=== PATIENT | female | born 1990 | race American Indian/Alaskan Native ===

== ENCOUNTER 2016-08-24 22:06 | Emergency (ER) | payer MEDICAID, OTHER ==
[2016-08-24 22:12] VITALS: BP 146/92
--- NOTE | 2016-08-24 22:50 | EDM.PDOC ---
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 History: Reports: , Spontaneous Other OB/BYN History: menarche - Infectious Disease History Infectious Disease History: Reports: Hepatitis C - Past Surgical History Female Surgical History: Reports: Section Social & Family History - Family History Family Medical History: Noncontributory - Tobacco Use Smoking Status *Q: Current Every Day Smoker Years of Tobacco use: 15 Packs/Tins Daily: 0.2 Used Tobacco, but Quit: No Second Hand Smoke Exposure: Yes - Alcohol Use Days Per Week of Alcohol Use: 0 - Recreational Drug Use Recreational Drug Use: No Review of Systems - Review of Systems Review Of Systems: ROS reveals no pertinent complaints other than HPI. Trauma Exam - Physical Exam Exam: See Below Exam Limited By: No Limitations General Appearance: Reports: Alert, WD/WN, Mild Distress, Other (ankle pain) Head: Reports: Atraumatic Ears: Reports: Hearing Grossly Normal Throat/Mouth: Reports: Normal Voice, No Airway Compromise Neck: Reports: Non-Tender, Full Range of Motion Respiratory Exam: Reports: No Respiratory Distress Cardiovascular: Reports: Regular Rate, Rhythm GI/Abdominal: Reports: Soft, Non-Tender Extremities: Pain with Movement, Tenderness, Unable to Bear Weight, Other (left ankle swollen tender R/P, NV wnl, gait unable) Neurologic: Reports: No Motor/Sensory Deficits, Alert, Normal Mood/Affect, Oriented x 3 Skin: Reports: Normal Color, Warm/Dry Course - Vital Signs Last Recorded V/S: Last Vital Signs Temp 36.3 C 08/24/16 22:08 Pulse 62 08/24/16 22:08 Resp 18 08/24/16 22:08 BP 146/92 H 08/24/16 22:08 Pulse Ox 99 08/24/16 22:08 - Re-Assessments/Exams Free Text/Narrative Re-Assessment/Exam: 08/24/16 23:38 negative x-ray discussed with Pt. Departure - Departure Time of Disposition: 23:39 Disposition: Home, Self-Care 01 Condition: good Clinical Impression: High ankle sprain of left lower extremity Qualifiers: Encounter type: initial encounter Qualified Code(s): S93.432A - Sprain of tibiofibular ligament of left ankle, initial encounter - Discharge Information Instructions: Ankle Sprain, [id number] Forms: ED Department Discharge Additional Instructions: 1) elevate leg as much as possible next 48 hours 2) ice intermittently for swelling 3) wear WINDY for comfort and use crutches 4) follow up at clinic or recheck as needed }
== END 2016-08-24 23:46 | disposition home or self-care (01) ==
LOC: DL.ED 22:06
DX: S93.432A Sprain of tibiofibular ligament of left ankle, initial encounter (principal); F17.210 Nicotine dependence, cigarettes, uncomplicated; X50.1XXA Overexertion from prolonged static or awkward postures, initial encounter
CPT/HCPCS: 73600-LT; 99283

== ENCOUNTER 2016-08-26 04:53 | Inpatient (IN) | payer MEDICAID, SELFPAY ==
[~2016-08-26 04:53] MED LIST: Citric Acid/Sodium Citrate Solution 30 ML Cup PO ONE; Ondansetron 4 MG/2 ML SDV IVPUSH PRN; Sodium Chloride 0.9% 10 ML Syringe FLUSH PRN; ceFAZolin 2 GM in Premix Bag 1 BAG IV ONE
[2016-08-26] MEDS ORDERED: Oxytocin/Normal Saline 30 UNIT/500 ML BAG IV SCH (05:00)
[2016-08-26] MEDS: Lactated Ringers 1,000 ML IV SCH ×3 (06:40→10:58)
[2016-08-26] MEDS ORDERED: Morphine PF 5 MG/10 ML SDV ONE ×2 (07:22→16:06)
[2016-08-26] MEDS ORDERED: Phenylephrine 1% 10 MG/ML SDV ONE ×3 (07:22→07:24)
[2016-08-26] MEDS ORDERED: fentaNYL 100 MCG/2 ML SDV ONE ×2 (07:22→16:06)
[2016-08-26] MEDS ORDERED: ePHEDrine 50 MG/ML SDV ONE (07:22)
[2016-08-26] MEDS ORDERED: Glycopyrrolate 0.2 MG/ML 2 ML SDV ONE (07:23)
[2016-08-26] MEDS ORDERED: Ketorolac 30 MG/ML SDV IVPUSH ONE ×2 (08:30→16:06)
[2016-08-26] MEDS ORDERED: Acetaminophen 325 MG Tab PO PRN (12:54)
[2016-08-26] MEDS ORDERED: Acetaminophen/oxyCODONE 325-5 MG Tab PO PRN (12:54)
[2016-08-26] MEDS ORDERED: Ondansetron 4 MG/2 ML SDV IV PRN (12:54)
[2016-08-26] MEDS ORDERED: Ibuprofen 800 MG Tab PO PRN (12:54)
[2016-08-26] MEDS ORDERED: Misoprostol 400 MCG (4 X 100 MCG TAB) RECTAL PRN (12:54)
[2016-08-26] MEDS ORDERED: ePHEDrine 50 MG/ML SDV IVPUSH PRN (12:54)
[2016-08-26] MEDS ORDERED: Methylergonovine 0.2 MG/1 ML Amp IM PRN (12:54)
[2016-08-26] MEDS ORDERED: Naloxone 2 MG/2 ML Syringe IVPUSH PRN (12:54)
[2016-08-26] MEDS ORDERED: Lactated Ringers 1,000 ML IV SCH (13:00)
[2016-08-26] MEDS ORDERED: Ondansetron 4 MG/2 ML SDV IV ONE (16:06)
[2016-08-26] MEDS ORDERED: ePHEDrine 50 MG/ML SDV IV ONE (16:06)
[2016-08-26] MEDS ORDERED: Glycopyrrolate 0.2 MG/ML 2 ML SDV IV ONE (16:06)
[2016-08-26] MEDS ORDERED: Oxytocin/Normal Saline 30 UNIT/500 ML BAG IV ONE (16:08)
[2016-08-26] MEDS ORDERED: ceFAZolin 2 GM in Premix Bag 1 BAG IV ONE (16:08)
[2016-08-26] MEDS: Loratadine 10 MG Tab PO SCH (17:34)
[2016-08-26] MEDS: Ketorolac 30 MG/ML SDV IVPUSH SCH ×2 (17:35→23:31)
[2016-08-26] MEDS: Famotidine 20 MG/2 ML SDV IVPUSH PRN (17:37)
[2016-08-26] MEDS: Ferrous Sulfate 325 MG Tab PO SCH (17:54)
[2016-08-26] MEDS: Simethicone 80 MG Tab.Chew PO PRN (19:28)
[2016-08-26] MEDS: Docusate Sodium 100 MG Cap PO PRN (19:28)
[2016-08-26] MEDS: diphenhydrAMINE 50 MG/ML SDV IVPUSH PRN (19:28)
[2016-08-26] MEDS ORDERED: Hydrocortisone 1% Crm 30 GM Tube TOP PRN (20:38)
[2016-08-26] MEDS: Acetaminophen/oxyCODONE 325-5 MG Tab PO PRN (23:30)
[2016-08-27] MEDS: diphenhydrAMINE 50 MG/ML SDV IVPUSH PRN ×2 (00:53→13:09)
[2016-08-27] MEDS: Acetaminophen/oxyCODONE 325-5 MG Tab PO PRN ×5 (03:23→21:39)
[2016-08-27] MEDS: Ketorolac 30 MG/ML SDV IVPUSH SCH (05:47)
[2016-08-27] MEDS: Famotidine 20 MG/2 ML SDV IVPUSH PRN (06:05)
--- NOTE | 2016-08-27 07:48 | PCM.PN ---
[id number] Status: Reports: pain controlled, tolerating diet - Review of Systems General: Reports: No Symptoms HEENT: Reports: no symptoms Pulmonary: Denies: shortness of breath, cough, wheezing Cardiovascular: Denies: Chest Pain Gastrointestinal: Reports: Flatus. Denies: Nausea, Vomiting Genitourinary: Reports: no symptoms Musculoskeletal: Reports: no symptoms Skin: Reports: pruritis Neurological: Reports: No Symptoms Psychiatric: Reports: no symptoms - Patient Data Vitals - most recent: Last Vital Signs Temp 97.7 F 08/27/16 07:34 Pulse 62 08/27/16 07:34 Resp 16 08/27/16 07:34 BP 121/77 08/27/16 07:34 Pulse Ox 99 08/27/16 07:34 Weight - most recent: 69.853 kg I&O - last 24 hours: Intake & Output 08/26/16 08/27/16 08/27/16 22:59 06:59 14:59 Intake Total 284 800 Output Total 215 2650 Balance 69 -1850 Lab Results last 24 hrs: Laboratory Results - last 24 hr 08/26/16 08/26/16 08/27/16 Range/Units 06:29 08:22 06:06 WBC 8.1 (5.0-10.0) 10^3/uL RBC 3.89 L (4.2-5.4) 10^6/uL Hgb 11.5 L (12.0-16.0) g/dL Hct 34.9 L (37.0-47.0) % MCV 89.7 (80-100) fL MCH 29.6 (27.0-34.0) pg MCHC 33.0 (33.0-35.0) g/dL Plt Count 246 (150-450) 10^3/uL Urine Opiates Screen Negative (NEGATIVE) Ur Oxycodone Screen Positive H (NEGATIVE) Urine Methadone Screen Negative (NEGATIVE) Ur Barbiturates Screen Negative (NEGATIVE) U Tricyclic Antidepress Negative (NEGATIVE) Ur Phencyclidine Scrn Negative (NEGATIVE) Ur Amphetamine Screen Negative (NEGATIVE) U Methamphetamines Scrn Negative (NEGATIVE) Urine MDMA Screen Negative (NEGATIVE) U Benzodiazepines Scrn Negative (NEGATIVE) Urine Cocaine Screen Negative (NEGATIVE) U Marijuana (THC) Screen Negative (NEGATIVE) Blood Type O POSITIVE Gel Antibody Screen Negative Med Orders - Current: Current Medications Acetaminophen (Tylenol) 650 mg PO Q6H PRN PRN Reason: mild pain or fever Diphenhydramine HCl (Benadryl) 25 mg IVPUSH Q6H PRN PRN Reason: Itching or Nausea Last Admin: 08/27/16 00:53 Dose: 25 mg Docusate Sodium (Colace) 100 mg PO Q12H PRN PRN Reason: Constipation Last Admin: 08/26/16 19:28 Dose: 100 mg Ephedrine Sulfate (Ephedrine Sulfate) 5 mg IVPUSH SEECOMMENT PRN PRN Reason: Other Famotidine (Pepcid) 20 mg IVPUSH BID PRN PRN Reason: Itching Last Admin: 08/27/16 06:05 Dose: 20 mg Ferrous Sulfate (Ferrous Sulfate) 325 mg PO BRK JERAMY Last Admin: 08/26/16 17:54 Dose: Not Given Hydrocortisone (Hydrocortisone 1% Crm) 0 gm TOP ASDIRECTED PRN PRN Reason: Itching Last Admin: 08/26/16 21:29 Dose: 1 gm Oxytocin/Sodium Chloride (Pitocin In Ns 30 Unit/500 Ml) 30 unit in 500 mls @ 500 mls/hr IV TITRATE JERAMY; 500 MUNITS/MIN PRN Reason: Protocol Last Titration: 08/26/16 16:13 Dose: 0 munits/min, 0 mls/hr Lactated Ringer's (Ringers, Lactated) 1,000 mls @ 125 mls/hr IV ASDIRECTED JERAMY Last Admin: 08/26/16 10:58 Dose: 125 mls/hr Lactated Ringer's (Ringers, Lactated) 1,000 mls @ 125 mls/hr IV ASDIRECTED JERAMY Ibuprofen (Motrin) 800 mg PO Q8H PRN PRN Reason: mild pain or fever Loratadine (Claritin) 10 mg PO DAILY [facility] Last Admin: 08/26/16 17:34 Dose: 10 mg Methylergonovine Maleate (Methergine) 0.2 mg IM ONETIME PRN PRN Reason: Excessive Vaginal Bleeding Misoprostol (Cytotec) 800 mcg RECTAL ASDIRECTED PRN PRN Reason: Bleeding Naloxone HCl (Narcan) 0.1 mg IVPUSH SEECOMMENT PRN PRN Reason: Respiratory Depression Ondansetron HCl (Zofran) 4 mg IVPUSH Q4H PRN PRN Reason: Nausea/Vomiting Ondansetron HCl (Zofran) 4 mg IV Q4H PRN PRN Reason: Nausea/Vomiting Oxycodone/Acetaminophen (Percocet 325-5 Mg) 1 tab PO Q4H PRN PRN Reason: Pain (moderate 4-6) Oxycodone/Acetaminophen (Percocet 325-5 Mg) 2 tab PO Q4H PRN PRN Reason: Pain (moderate 4-6) Last Admin: 08/27/16 03:23 Dose: 2 tab Prenat Multivit/Breckinridge/Iron/Folic Ac ( Plus Iron) 1 each PO DAILY JERAMY Simethicone (Simethicone) 80 mg PO Q4H PRN PRN Reason: Gas Last Admin: 08/26/16 19:28 Dose: 80 mg Sodium Chloride (Saline Flush) 10 ml FLUSH ASDIRECTED PRN PRN Reason: Keep Vein Open Discontinued Medications Citric Acid/Sodium Citrate (Bicitra Solution) 30 ml PO ONETIME ONE Stop: 08/26/16 04:53 Last Admin: 08/26/16 11:16 Dose: 30 ml Ephedrine Sulfate (Ephedrine Sulfate) Confirm Administered Dose 50 mg .ROUTE .STK-MED ONE Stop: 08/26/16 07:23 Ephedrine Sulfate (Ephedrine Sulfate) 15 mg IV .STK-MED ONE Stop: 08/26/16 16:07 Fentanyl (Sublimaze) Confirm Administered Dose 100 mcg .ROUTE .STK-MED ONE Stop: 08/26/16 07:23 Fentanyl (Sublimaze) 10 mcg .XX .STK-MED ONE Stop: 08/26/16 16:07 Glycopyrrolate (Glycopyrrolate) Confirm Administered Dose 0.4 mg .ROUTE .STK- MED ONE Stop: 08/26/16 07:24 Glycopyrrolate (Glycopyrrolate) 0.2 mg IV .STK-MED ONE Stop: 08/26/16 16:07 Cefazolin Sodium/Dextrose 2 gm (/ Premix) 50 mls @ 100 mls/hr IV ONETIME ONE Stop: 08/26/16 05:21 Last Admin: 08/26/16 11:50 Dose: 100 mls/hr Cefazolin Sodium/Dextrose 2 gm (/ Premix) 50 mls @ as directed IV .STK-MED ONE Stop: 08/26/16 16:09 Oxytocin/Sodium Chloride (Pitocin In Ns 30 Unit/500 Ml) 30 unit in 500 mls @ as directed IV .STK-MED ONE Stop: 08/26/16 16:09 Ibuprofen (Motrin) 800 mg PO Q8H PRN PRN Reason: mild pain or fever Ketorolac Tromethamine (Toradol) 30 mg IVPUSH ONETIME ONE Stop: 08/26/16 08:31 Last Admin: 08/26/16 15:27 Dose: Not Given Ketorolac Tromethamine (Toradol) 15 mg IVPUSH Q6H JERAMY Stop: 08/27/16 06:01 Last Admin: 08/27/16 05:47 Dose: 15 mg Ketorolac Tromethamine (Toradol) 30 mg IVPUSH .STK-MED ONE Stop: 08/26/16 16:07 Morphine Sulfate (Duramorph Pf) Confirm Administered Dose 5 mg .ROUTE .STK-MED ONE Stop: 08/26/16 07:23 Morphine Sulfate (Duramorph Pf) 0.2 mg .XX .STK-MED ONE Stop: 08/26/16 16:07 Ondansetron HCl (Zofran) 4 mg IV .STK-MED ONE Stop: 08/26/16 16:07 Phenylephrine HCl (Jesus Alberto-Synephrine) Confirm Administered Dose 10 mg .ROUTE .STK- MED ONE Stop: 08/26/16 07:23 Phenylephrine HCl (Jesus Alberto-Synephrine) Confirm Administered Dose 10 mg .ROUTE .STK- MED ONE Stop: 08/26/16 07:24 Phenylephrine HCl (Jesus Alberto-Synephrine) Confirm Administered Dose 10 mg .ROUTE .STK- MED ONE Stop: 08/26/16 07:25 - Exam General: alert, oriented, cooperative, no acute distress Lungs: Clear to auscultation, Normal respiratory effort Cardiovascular: Regular Rate, Regular Rhythm Abdomen: bowel sounds present, soft, no distension (Female) Exam: Deferred Back Exam: Normal Inspection Extremities: no edema Skin: warm, dry, intact Wound/Incisions: healing well, no drainage Neurological: no new focal deficit Psy/Mental Status: alert, normal affect - Problem List & Annotations (1) S/P repeat low transverse SNOMED Code(s): 614150509, 948136096, 946342960, 412406773 Code(s): Z98.891 - HISTORY OF UTERINE SCAR FROM PREVIOUS SURGERY Status: Acute Current Visit: Yes (2) Intrahepatic cholestasis of SNOMED Code(s): 077148291 Code(s): O26.619 - LIVER AND BILIARY TRACT DISORD IN , UNSP TRIMESTER; K83.1 - OBSTRUCTION OF BILE DUCT Status: Acute Current Visit: Yes (3) Blood type O+ SNOMED Code(s): 136721875 Code(s): Z67.40 - TYPE O BLOOD, RH POSITIVE Status: Acute Current Visit: Yes (4) History of drug abuse SNOMED Code(s): 715813756 Code(s): Z87.898 - PERSONAL HISTORY OF OTHER SPECIFIED CONDITIONS Status: Acute Current Visit: Yes - Problem List Review Problem List Initiated/Reviewed/Updated: Yes - Assessment Assessment:: Assessment: 1. Now 1 day s/p csection at 37 weeks 2. 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 O+ rubella equivocal, GBS- 4. History of BV in first trimester - treated 5. h/o recently sprained ankle. - Plan Plan:: 1. continue, cares per unit protocol 2. Remove ferguson catheter 3. Ambulate as able 4. loratadine and hydrocortisone as ordered for itching. <Nicolette Vu - Last Filed: 08/28/16 02:25> - Patient Data Vitals - most recent: Last Vital Signs Temp 97.2 F 08/27/16 20:00 Pulse 118 H 08/27/16 20:00 Resp 16 08/27/16 20:00 BP 126/77 08/27/16 16:00 Pulse Ox 97 08/27/16 20:00 I&O - last 24 hours: Intake & Output 08/27/16 08/27/16 08/28/16 14:59 22:59 06:59 Intake Total 500 Output Total 2000 350 Balance -1500 -350 Lab Results last 24 hrs: Laboratory Results - last 24 hr 08/27/16 Range/Units 06:06 WBC 8.1 (5.0-10.0) 10^3/uL RBC 3.89 L (4.2-5.4) 10^6/uL Hgb 11.5 L (12.0-16.0) g/dL Hct 34.9 L (37.0-47.0) % MCV 89.7 (80-100) fL MCH 29.6 (27.0-34.0) pg MCHC 33.0 (33.0-35.0) g/dL Plt Count 246 (150-450) 10^3/uL Med Orders - Current: Current Medications Acetaminophen (Tylenol) 650 mg PO Q6H PRN PRN Reason: mild pain or fever Diphenhydramine HCl (Benadryl) 25 mg IVPUSH Q6H PRN PRN Reason: Itching or Nausea Last Admin: 08/27/16 13:09 Dose: 25 mg Diphenhydramine HCl (Benadryl) 25 mg PO QID PRN PRN Reason: Itching Docusate Sodium (Colace) 100 mg PO Q12H PRN PRN Reason: Constipation Last Admin: 08/27/16 21:42 Dose: 100 mg Ephedrine Sulfate (Ephedrine Sulfate) 5 mg IVPUSH SEECOMMENT PRN PRN Reason: Other Famotidine (Pepcid) 20 mg IVPUSH BID PRN PRN Reason: Itching Last Admin: 08/27/16 06:05 Dose: 20 mg Ferrous Sulfate (Ferrous Sulfate) 325 mg PO BRK JERAMY Last Admin: 08/27/16 09:18 Dose: 325 mg Hydrocortisone (Hydrocortisone 1% Crm) 0 gm TOP ASDIRECTED PRN PRN Reason: Itching Last Admin: 08/26/16 21:29 Dose: 1 gm Oxytocin/Sodium Chloride (Pitocin In Ns 30 Unit/500 Ml) 30 unit in 500 mls @ 500 mls/hr IV TITRATE JERAMY; 500 MUNITS/MIN PRN Reason: Protocol Last Titration: 08/26/16 16:13 Dose: 0 munits/min, 0 mls/hr Lactated Ringer's (Ringers, Lactated) 1,000 mls @ 125 mls/hr IV ASDIRECTED JERAMY Last Admin: 08/26/16 10:58 Dose: 125 mls/hr Lactated Ringer's (Ringers, Lactated) 1,000 mls @ 125 mls/hr IV ASDIRECTED JERAMY Ibuprofen (Motrin) 800 mg PO Q8H PRN PRN Reason: mild pain or fever Last Admin: 08/28/16 01:54 Dose: 800 mg Loratadine (Claritin) 10 mg PO DAILY [facility] Last Admin: 08/27/16 09:17 Dose: 10 mg Methylergonovine Maleate (Methergine) 0.2 mg IM ONETIME PRN PRN Reason: Excessive Vaginal Bleeding Misoprostol (Cytotec) 800 mcg RECTAL ASDIRECTED PRN PRN Reason: Bleeding Naloxone HCl (Narcan) 0.1 mg IVPUSH SEECOMMENT PRN PRN Reason: Respiratory Depression Ondansetron HCl (Zofran) 4 mg IVPUSH Q4H PRN PRN Reason: Nausea/Vomiting Ondansetron HCl (Zofran) 4 mg IV Q4H PRN PRN Reason: Nausea/Vomiting Oxycodone/Acetaminophen (Percocet 325-5 Mg) 1 tab PO Q4H PRN PRN Reason: Pain (moderate 4-6) Oxycodone/Acetaminophen (Percocet 325-5 Mg) 2 tab PO Q4H PRN PRN Reason: Pain (moderate 4-6) Last Admin: 08/28/16 01:50 Dose: 2 tab Prenat Multivit/Breckinridge/Iron/Folic Ac ( Plus Iron) 1 each PO DAILY [facility] Last Admin: 08/27/16 09:18 Dose: 1 each Simethicone (Simethicone) 80 mg PO Q4H PRN PRN Reason: Gas Last Admin: 08/27/16 21:40 Dose: 80 mg Sodium Chloride (Saline Flush) 10 ml FLUSH ASDIRECTED PRN PRN Reason: Keep Vein Open Last Admin: 08/27/16 13:10 Dose: 10 ml Zolpidem Tartrate (Ambien) 5 mg PO BEDTIME PRN PRN Reason: Sleep Last Admin: 08/27/16 21:40 Dose: 5 mg Discontinued Medications Citric Acid/Sodium Citrate (Bicitra Solution) 30 ml PO ONETIME ONE Stop: 08/26/16 04:53 Last Admin: 08/26/16 11:16 Dose: 30 ml Ephedrine Sulfate (Ephedrine Sulfate) Confirm Administered Dose 50 mg .ROUTE .STK-MED ONE Stop: 08/26/16 07:23 Ephedrine Sulfate (Ephedrine Sulfate) 15 mg IV .STK-MED ONE Stop: 08/26/16 16:07 Fentanyl (Sublimaze) Confirm Administered Dose 100 mcg .ROUTE .STK-MED ONE Stop: 08/26/16 07:23 Fentanyl (Sublimaze) 10 mcg .XX .STK-MED ONE Stop: 08/26/16 16:07 Glycopyrrolate (Glycopyrrolate) Confirm Administered Dose 0.4 mg .ROUTE .STK- MED ONE Stop: 08/26/16 07:24 Glycopyrrolate (Glycopyrrolate) 0.2 mg IV .STK-MED ONE Stop: 08/26/16 16:07 Cefazolin Sodium/Dextrose 2 gm (/ Premix) 50 mls @ 100 mls/hr IV ONETIME ONE Stop: 08/26/16 05:21 Last Admin: 08/26/16 11:50 Dose: 100 mls/hr Cefazolin Sodium/Dextrose 2 gm (/ Premix) 50 mls @ as directed IV .STK-MED ONE Stop: 08/26/16 16:09 Oxytocin/Sodium Chloride (Pitocin In Ns 30 Unit/500 Ml) 30 unit in 500 mls @ as directed IV .STK-MED ONE Stop: 08/26/16 16:09 Ibuprofen (Motrin) 800 mg PO Q8H PRN PRN Reason: mild pain or fever Ketorolac Tromethamine (Toradol) 30 mg IVPUSH ONETIME ONE Stop: 08/26/16 08:31 Last Admin: 08/26/16 15:27 Dose: Not Given Ketorolac Tromethamine (Toradol) 15 mg IVPUSH Q6H JERAMY Stop: 08/27/16 06:01 Last Admin: 08/27/16 05:47 Dose: 15 mg Ketorolac Tromethamine (Toradol) 30 mg IVPUSH .STK-MED ONE Stop: 08/26/16 16:07 Measles/Mumps/Rubella Vaccine Live (M-M-R Ii Vaccine) 0.5 ml SUBCUT .ONCE ONE Stop: 08/28/16 00:13 Morphine Sulfate (Duramorph Pf) Confirm Administered Dose 5 mg .ROUTE .STK-MED ONE Stop: 08/26/16 07:23 Morphine Sulfate (Duramorph Pf) 0.2 mg .XX .STK-MED ONE Stop: 08/26/16 16:07 Ondansetron HCl (Zofran) 4 mg IV .STK-MED ONE Stop: 08/26/16 16:07 Phenylephrine HCl (Jesus Alberto-Synephrine) Confirm Administered Dose 10 mg .ROUTE .STK- MED ONE Stop: 08/26/16 07:23 Phenylephrine HCl (Jesus Alberto-Synephrine) Confirm Administered Dose 10 mg .ROUTE .STK- MED ONE Stop: 08/26/16 07:24 Phenylephrine HCl (Jesus Alberto-Synephrine) Confirm Administered Dose 10 mg .ROUTE .STK- MED ONE Stop: 08/26/16 07:25 Zolpidem Tartrate (Ambien) 5 mg PO ONETIME ONE Stop: 08/27/16 22:37 Last Admin: 08/27/16 22:50 Dose: 5 mg - My Orders Last 24 Hours: My Active Orders 08/27/16 09:00 Vit with Ca/FA/Iron [ Plus Iron] 1 each PO DAILY 08/27/16 14:00 Ibuprofen [Motrin] 800 mg PO Q8H PRN 08/27/16 21:23 Zolpidem [Ambien] 5 mg PO BEDTIME PRN 08/27/16 22:34 diphenhydrAMINE [Benadryl] 25 mg PO QID PRN 08/28/16 00:12 Vaccines to be Administered [RC] PER UNIT ROUTINE - Plan Plan:: Patient seen and examined. Agree with note above by Spring Ragland, MS3. Patient is anxious to get ferguson out and dressing off. Would add to diagnosis intense itching, positive oxycodone on UDS. History of polysubstance abuse, and insufficient care. 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
[2016-08-27] MEDS: Loratadine 10 MG Tab PO SCH (09:17)
[2016-08-27] MEDS: Prenatal Multivitamin with Calcium/Folic Acid/Iron Tab PO SCH (09:18)
[2016-08-27] MEDS: Docusate Sodium 100 MG Cap PO PRN ×2 (09:18→21:42)
[2016-08-27] MEDS: Ferrous Sulfate 325 MG Tab PO SCH (09:18)
[2016-08-27] MEDS: Simethicone 80 MG Tab.Chew PO PRN ×4 (09:19→21:40)
--- NOTE | 2016-08-27 10:24 | OR ---
DATE: 08/26/2016 PROCEDURE PERFORMED: Repeat low-transverse section with vacuum assistance. PREPROCEDURE DIAGNOSES: 1. 37 and 0/7th weeks intrauterine . 2. High-risk due to intrahepatic cholestasis of . 3. Insufficient care. 4. Abnormal glucose tolerance test at 1 hour, patient did not complete the 3 hour test. 5. Assistance needed with transportation. 6. History of section x1. 7. History of spontaneous x2. 8. History of drug use including marijuana, methamphetamine, and oxycodone. Positive oxycodone drug screen on admission. 9. Bacterial vaginosis treated earlier in . 10.Left ankle sprain. 11.Hepatitis C carrier. 12.Light smoker. POSTPROCEDURE DIAGNOSES: 1. 37 and 0/7th weeks intrauterine . 2. High-risk due to intrahepatic cholestasis of . 3. Insufficient care. 4. Abnormal glucose tolerance test at 1 hour, patient did not complete the 3 hour test. 5. Assistance needed with transportation. 6. History of section x1. 7. History of spontaneous x2. 8. History of drug use including marijuana, methamphetamine, and oxycodone. Positive oxycodone drug screen on admission. 9. Bacterial vaginosis treated earlier in . 10.Left ankle sprain. 11.Hepatitis C carrier. 12.Light smoker. 13.Delivery of viable male infant. BRIEF HISTORY: A 26-year-old female with the above-listed diagnoses, presented to the hospital for planned elective repeat section at 37 weeks gestation because of intrahepatic cholestasis of . Denied any symptoms of preeclampsia or other acute complications. Last methamphetamine use was reported in January 2016, which would be in the first trimester. Drug screen positive for oxycodone on admission. The patient's only complaint was severe itching because of her ICP. SURGEON: SOFI CONTRERAS MD. LOCATOR: PRAKASH SHELL MD. SECOND DRILLING FIELD PROFESSIONAL: ALBINO HARTMANN MS III CONSENT: Discussed with the patient, her boyfriend, and step sister. Reviewed indications, risks, benefits, and alternatives of repeat low-transverse section for delivery, specifically that delivery indicated because of her history of ICP. I discussed risk of infection and plan for preoperative antibiotics, risk for bleeding and potential for need for blood transfusion, including but not limited to, transfusion reaction, contraction of blood borne disease or illness or other complications. Discussed risk of injury to any large blood vessels, nerves, other adjacent structures, any potential injury to bowel, bladder, ureters, fallopian tubes, ovaries, uterus, even potential injury to the baby and any other unintended structures and those will be repaired as needed and there was a surgeon in house to assist if necessary. Her questions were answered. She agreed to proceed and appropriate consent forms were signed and in the chart. DESCRIPTION OF PROCEDURE: The patient was taken to the operating room and spinal anesthesia obtained. She was then laid in the dorsal supine position with leftward tilt, and Huang indwelling catheter placed. She was prepped and draped in the usual sterile fashion and skin incision made at 12:02 p.m. and carried down to the underlying fascia using finger dissection and cautery. Fascia incised in the midline with cautery bilaterally and extended with Chopra scissors. Superior fascial edge grasped with Daniela's, tented up, and rectus muscles dissected off bluntly and with cautery. Inferior fascial edge grasped with Daniela's, tented up, and rectus muscles also dissected off bluntly and with cautery. Rectus muscles in the midline with blunt finger dissection and peritoneal cavity entered by blunt finger dissection and extended with traction. Andres O retractor was then placed without difficulties and appropriate site for a low-transverse uterine incision identified and made with scalpel at 12:08 p.m. and extended bilaterally using the Baeza method. Amniotic sac was visible and ruptured with hemostats. Infant's head was brought up to the hysterotomy site, but we were having some difficulty getting it through and there were large blood vessels noted on the maternal left side of the uterus, therefore vacuum assistance used and after the head delivered loose nuchal cord reduced and baby delivered at 12:09 p.m. without difficulties. 's mouth and nose were bulb suctioned. Umbilical cord was doubly clamped, cut and baby taken over to the warmer for further evaluation. Cord blood sample obtained and placenta then removed by gentle cord traction and manual extraction intact. Hysterotomy site inspected and closed with a running lock suture of 0 Vicryl in the usual fashion. There continued to be some sites of oozing, so a second imbricating layer was then placed resulting in excellent hemostasis. This layer was irrigated and all clots and debris removed. The Andres O retractor was then removed. Pericolic gutters cleared of any clots and debris. Hysterotomy site reinspected and remained hemostatic. Peritoneal layer was then closed in the midline using a running stitch of 0 Vicryl. The fascia layer was then irrigated, cleared of all clots and debris and fascia closed with a running stitch of 0 looped PDS in the usual fashion. Subcutaneous tissues irrigated, cleared of any clots and debris and small bleeders controlled with cautery. Skin was then closed with amanda at 12:39 p.m. The patient tolerated procedure well and will be taken to the PACU until she can go back down to Labor and Delivery to be with her baby. ESTIMATED BLOOD LOSS: 600 mL. FLUIDS: 1800 mL crystalloid. URINE OUTPUT: Adequate and clear yellow. COMPLICATIONS: None. FINDINGS: Viable male infant, weighing 6 pounds 13 ounces, 3100 g, length 18- 3/4 inches. [facility] /[id number] [facility]PITALJaya
--- NOTE | 2016-08-27 14:22 | PCM.POSTAN ---
POST ANESTHESIA ASSESSMENT - MENTAL STATUS Mental Status: alert - VITAL SIGNS Pulse Rate: 61 SaO2: 98 Blood Pressure: 122/75 Temperature: 98 C - RESPIRATORY Respiratory Status: respiratory rate WNL - CARDIOVASCULAR CV Status: pulse rate WNL - GASTROINTESTINAL GI Status: no symptoms, nauseau - PAIN Pain Score: 0 - POST OP HYDRATION Hydration Status: adequate & stable (no c/o except some mild nausea. No c/o substantial pain (rated at 2/10). Pt states she is satisfied with anesthesia care. No post anesthesia complications noted.)
[2016-08-27] MEDS: Ibuprofen 800 MG Tab PO PRN (17:27)
[2016-08-27] MEDS: Zolpidem 5 MG Tab PO PRN (21:40)
[2016-08-27] MEDS ORDERED: diphenhydrAMINE 25 MG Tab PO PRN (22:34)
[2016-08-27] MEDS ORDERED: Zolpidem 5 MG Tab PO ONE (22:36)
[2016-08-28] MEDS ORDERED: Measles, Mumps & Rubella Vaccine 0.5 ML SDV SUBCUT ONE (00:12)
[2016-08-28] MEDS: Acetaminophen/oxyCODONE 325-5 MG Tab PO PRN ×5 (01:50→19:32)
[2016-08-28] MEDS: Ibuprofen 800 MG Tab PO PRN ×2 (01:54→13:48)
[2016-08-28] MEDS: Simethicone 80 MG Tab.Chew PO PRN ×2 (05:57→19:32)
--- NOTE | 2016-08-28 07:45 | PCM.PN ---
[id number] Status: Reports: pain controlled, tolerating diet, ambulating (as able as ankle is limiting. ), urinating, incentive spirometry ( says she is doing it. ) - Review of Systems General: Denies: Fever HEENT: Reports: no symptoms Pulmonary: Reports: no symptoms. Denies: shortness of breath, cough, wheezing Cardiovascular: Reports: No Symptoms Gastrointestinal: Reports: Flatus. Denies: Nausea, Vomiting Genitourinary: Reports: no symptoms Musculoskeletal: Reports: no symptoms Skin: Reports: no symptoms Neurological: Reports: No Symptoms Psychiatric: Reports: no symptoms - Patient Data Vitals - most recent: Last Vital Signs Temp 97.9 F 08/28/16 06:00 Pulse 89 08/28/16 06:00 Resp 16 08/28/16 06:00 BP 124/74 08/28/16 06:00 Pulse Ox 97 08/28/16 06:00 Weight - most recent: 69.853 kg I&O - last 24 hours: Intake & Output 08/27/16 08/28/16 08/28/16 22:59 06:59 14:59 Output Total 350 Balance -350 Med Orders - Current: Current Medications Acetaminophen (Tylenol) 650 mg PO Q6H PRN PRN Reason: mild pain or fever Diphenhydramine HCl (Benadryl) 25 mg IVPUSH Q6H PRN PRN Reason: Itching or Nausea Last Admin: 08/27/16 13:09 Dose: 25 mg Diphenhydramine HCl (Benadryl) 25 mg PO QID PRN PRN Reason: Itching Docusate Sodium (Colace) 100 mg PO Q12H PRN PRN Reason: Constipation Last Admin: 08/27/16 21:42 Dose: 100 mg Ephedrine Sulfate (Ephedrine Sulfate) 5 mg IVPUSH SEECOMMENT PRN PRN Reason: Other Famotidine (Pepcid) 20 mg IVPUSH BID PRN PRN Reason: Itching Last Admin: 08/27/16 06:05 Dose: 20 mg Ferrous Sulfate (Ferrous Sulfate) 325 mg PO BRK JERAMY Last Admin: 08/27/16 09:18 Dose: 325 mg Hydrocortisone (Hydrocortisone 1% Crm) 0 gm TOP ASDIRECTED PRN PRN Reason: Itching Last Admin: 08/26/16 21:29 Dose: 1 gm Oxytocin/Sodium Chloride (Pitocin In Ns 30 Unit/500 Ml) 30 unit in 500 mls @ 500 mls/hr IV TITRATE JERAMY; 500 MUNITS/MIN PRN Reason: Protocol Last Titration: 08/26/16 16:13 Dose: 0 munits/min, 0 mls/hr Lactated Ringer's (Ringers, Lactated) 1,000 mls @ 125 mls/hr IV ASDIRECTED JERAMY Last Admin: 08/26/16 10:58 Dose: 125 mls/hr Lactated Ringer's (Ringers, Lactated) 1,000 mls @ 125 mls/hr IV ASDIRECTED JERAMY Ibuprofen (Motrin) 800 mg PO Q8H PRN PRN Reason: mild pain or fever Last Admin: 08/28/16 01:54 Dose: 800 mg Loratadine (Claritin) 10 mg PO DAILY JERAMY Last Admin: 08/27/16 09:17 Dose: 10 mg Methylergonovine Maleate (Methergine) 0.2 mg IM ONETIME PRN PRN Reason: Excessive Vaginal Bleeding Misoprostol (Cytotec) 800 mcg RECTAL ASDIRECTED PRN PRN Reason: Bleeding Naloxone HCl (Narcan) 0.1 mg IVPUSH SEECOMMENT PRN PRN Reason: Respiratory Depression Ondansetron HCl (Zofran) 4 mg IVPUSH Q4H PRN PRN Reason: Nausea/Vomiting Ondansetron HCl (Zofran) 4 mg IV Q4H PRN PRN Reason: Nausea/Vomiting Oxycodone/Acetaminophen (Percocet 325-5 Mg) 1 tab PO Q4H PRN PRN Reason: Pain (moderate 4-6) Oxycodone/Acetaminophen (Percocet 325-5 Mg) 2 tab PO Q4H PRN PRN Reason: Pain (moderate 4-6) Last Admin: 08/28/16 05:56 Dose: 2 tab Prenat Multivit/[place]/Iron/Folic Ac ( Plus Iron) 1 each PO DAILY JERAMY Last Admin: 08/27/16 09:18 Dose: 1 each Simethicone (Simethicone) 80 mg PO Q4H PRN PRN Reason: Gas Last Admin: 08/28/16 05:57 Dose: 80 mg Sodium Chloride (Saline Flush) 10 ml FLUSH ASDIRECTED PRN PRN Reason: Keep Vein Open Last Admin: 08/27/16 13:10 Dose: 10 ml Zolpidem Tartrate (Ambien) 5 mg PO BEDTIME PRN PRN Reason: Sleep Last Admin: 08/27/16 21:40 Dose: 5 mg Discontinued Medications Citric Acid/Sodium Citrate (Bicitra Solution) 30 ml PO ONETIME ONE Stop: 08/26/16 04:53 Last Admin: 08/26/16 11:16 Dose: 30 ml Ephedrine Sulfate (Ephedrine Sulfate) Confirm Administered Dose 50 mg .ROUTE .STK-MED ONE Stop: 08/26/16 07:23 Ephedrine Sulfate (Ephedrine Sulfate) 15 mg IV .STK-MED ONE Stop: 08/26/16 16:07 Fentanyl (Sublimaze) Confirm Administered Dose 100 mcg .ROUTE .STK-MED ONE Stop: 08/26/16 07:23 Fentanyl (Sublimaze) 10 mcg .XX .STK-MED ONE Stop: 08/26/16 16:07 Glycopyrrolate (Glycopyrrolate) Confirm Administered Dose 0.4 mg .ROUTE .STK- MED ONE Stop: 08/26/16 07:24 Glycopyrrolate (Glycopyrrolate) 0.2 mg IV .STK-MED ONE Stop: 08/26/16 16:07 Cefazolin Sodium/Dextrose 2 gm (/ Premix) 50 mls @ 100 mls/hr IV ONETIME ONE Stop: 08/26/16 05:21 Last Admin: 08/26/16 11:50 Dose: 100 mls/hr Cefazolin Sodium/Dextrose 2 gm (/ Premix) 50 mls @ as directed IV .STK-MED ONE Stop: 08/26/16 16:09 Oxytocin/Sodium Chloride (Pitocin In Ns 30 Unit/500 Ml) 30 unit in 500 mls @ as directed IV .STK-MED ONE Stop: 08/26/16 16:09 Ibuprofen (Motrin) 800 mg PO Q8H PRN PRN Reason: mild pain or fever Ketorolac Tromethamine (Toradol) 30 mg IVPUSH ONETIME ONE Stop: 08/26/16 08:31 Last Admin: 08/26/16 15:27 Dose: Not Given Ketorolac Tromethamine (Toradol) 15 mg IVPUSH Q6H JERAMY Stop: 08/27/16 06:01 Last Admin: 08/27/16 05:47 Dose: 15 mg Ketorolac Tromethamine (Toradol) 30 mg IVPUSH .STK-MED ONE Stop: 08/26/16 16:07 Measles/Mumps/Rubella Vaccine Live (M-M-R Ii Vaccine) 0.5 ml SUBCUT .ONCE ONE Stop: 08/28/16 00:13 Morphine Sulfate (Duramorph Pf) Confirm Administered Dose 5 mg .ROUTE .STK-MED ONE Stop: 08/26/16 07:23 Morphine Sulfate (Duramorph Pf) 0.2 mg .XX .STK-MED ONE Stop: 08/26/16 16:07 Ondansetron HCl (Zofran) 4 mg IV .STK-MED ONE Stop: 08/26/16 16:07 Phenylephrine HCl (Jesus Alberto-Synephrine) Confirm Administered Dose 10 mg .ROUTE .STK- MED ONE Stop: 08/26/16 07:23 Phenylephrine HCl (Jesus Alberto-Synephrine) Confirm Administered Dose 10 mg .ROUTE .STK- MED ONE Stop: 08/26/16 07:24 Phenylephrine HCl (Jesus Alberto-Synephrine) Confirm Administered Dose 10 mg .ROUTE .STK- MED ONE Stop: 08/26/16 07:25 Zolpidem Tartrate (Ambien) 5 mg PO ONETIME ONE Stop: 08/27/16 22:37 Last Admin: 08/27/16 22:50 Dose: 5 mg - Exam General: alert, oriented HEENT: Mucous membr. moist/pink Neck: supple Lungs: Clear to auscultation, Normal respiratory effort Cardiovascular: Regular Rate, Regular Rhythm Abdomen: bowel sounds present, soft, no distension (Female) Exam: Deferred Back Exam: Normal Inspection, Full Range of Motion Extremities: no edema Skin: warm, dry, intact Wound/Incisions: healing well, no drainage Neurological: no new focal deficit Psy/Mental Status: alert, normal affect, normal mood - Problem List & Annotations (1) S/P repeat low transverse SNOMED Code(s): 542591139, 204258672, 429700073, 044791347 Code(s): Z98.891 - HISTORY OF UTERINE SCAR FROM PREVIOUS SURGERY Status: Acute Current Visit: Yes (2) Intrahepatic cholestasis of SNOMED Code(s): 514805417 Code(s): O26.619 - LIVER AND BILIARY TRACT DISORD IN , UNSP TRIMESTER; K83.1 - OBSTRUCTION OF BILE DUCT Status: Acute Current Visit: Yes (3) Blood type O+ SNOMED Code(s): 882885100 Code(s): Z67.40 - TYPE O BLOOD, RH POSITIVE Status: Acute Current Visit: Yes (4) History of drug abuse SNOMED Code(s): 385249877 Code(s): Z87.898 - PERSONAL HISTORY OF OTHER SPECIFIED CONDITIONS Status: Acute Current Visit: Yes - Problem List Review Problem List Initiated/Reviewed/Updated: Yes - Assessment Assessment:: Assessment: 1. Now 2 day s/p csection at 37 weeks 2. 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 O+ rubella equivocal, GBS- 4. History of BV in first trimester - treated 5. h/o recently sprained ankle. 6. intense itching - improving 7. positive oxycodone on UDS. 8. History of polysubstance abuse, and insufficient care. - Plan Plan:: 1. continue, cares per unit protocol 2. continue incentive spirometry 3. Ambulate as able 4. loratadine and hydrocortisone as ordered for itching. Spring Ragland MSIII <Nicolette Vu - Last Filed: 08/28/16 20:46> - Patient Data Vitals - most recent: Last Vital Signs Temp 98.2 F 08/28/16 16:00 Pulse 58 L 08/28/16 16:00 Resp 20 08/28/16 16:00 BP 139/88 08/28/16 16:00 Pulse Ox 98 08/28/16 16:00 I&O - last 24 hours: Intake & Output 08/28/16 08/28/16 08/28/16 06:59 14:59 22:59 Intake Total 200 Balance 200 Med Orders - Current: Current Medications Acetaminophen (Tylenol) 650 mg PO Q6H PRN PRN Reason: mild pain or fever Diphenhydramine HCl (Benadryl) 25 mg IVPUSH Q6H PRN PRN Reason: Itching or Nausea Last Admin: 08/27/16 13:09 Dose: 25 mg Diphenhydramine HCl (Benadryl) 25 mg PO QID PRN PRN Reason: Itching Docusate Sodium (Colace) 100 mg PO Q12H PRN PRN Reason: Constipation Last Admin: 08/28/16 19:33 Dose: 100 mg Ephedrine Sulfate (Ephedrine Sulfate) 5 mg IVPUSH SEECOMMENT PRN PRN Reason: Other Famotidine (Pepcid) 20 mg IVPUSH BID PRN PRN Reason: Itching Last Admin: 08/27/16 06:05 Dose: 20 mg Ferrous Sulfate (Ferrous Sulfate) 325 mg PO BRK JERAMY Last Admin: 08/28/16 09:21 Dose: 325 mg Hydrocortisone (Hydrocortisone 1% Crm) 0 gm TOP ASDIRECTED PRN PRN Reason: Itching Last Admin: 08/26/16 21:29 Dose: 1 gm Oxytocin/Sodium Chloride (Pitocin In Ns 30 Unit/500 Ml) 30 unit in 500 mls @ 500 mls/hr IV TITRATE JERAMY; 500 MUNITS/MIN PRN Reason: Protocol Last Titration: 08/26/16 16:13 Dose: 0 munits/min, 0 mls/hr Lactated Ringer's (Ringers, Lactated) 1,000 mls @ 125 mls/hr IV ASDIRECTED JERAMY Last Admin: 08/26/16 10:58 Dose: 125 mls/hr Lactated Ringer's (Ringers, Lactated) 1,000 mls @ 125 mls/hr IV ASDIRECTED JERAMY Ibuprofen (Motrin) 800 mg PO Q8H PRN PRN Reason: mild pain or fever Last Admin: 08/28/16 13:48 Dose: 800 mg Loratadine (Claritin) 10 mg PO DAILY JERAMY Last Admin: 08/28/16 09:21 Dose: 10 mg Methylergonovine Maleate (Methergine) 0.2 mg IM ONETIME PRN PRN Reason: Excessive Vaginal Bleeding Misoprostol (Cytotec) 800 mcg RECTAL ASDIRECTED PRN PRN Reason: Bleeding Naloxone HCl (Narcan) 0.1 mg IVPUSH SEECOMMENT PRN PRN Reason: Respiratory Depression Ondansetron HCl (Zofran) 4 mg IVPUSH Q4H PRN PRN Reason: Nausea/Vomiting Ondansetron HCl (Zofran) 4 mg IV Q4H PRN PRN Reason: Nausea/Vomiting Oxycodone/Acetaminophen (Percocet 325-5 Mg) 1 tab PO Q4H PRN PRN Reason: Pain (moderate 4-6) Oxycodone/Acetaminophen (Percocet 325-5 Mg) 2 tab PO Q4H PRN PRN Reason: Pain (moderate 4-6) Last Admin: 08/28/16 19:32 Dose: 2 tab Prenat Multivit/Paper Inserter/Iron/Folic Ac ( Plus Iron) 1 each PO DAILY JERAMY Last Admin: 08/28/16 09:21 Dose: 1 each Simethicone (Simethicone) 80 mg PO Q4H PRN PRN Reason: Gas Last Admin: 08/28/16 19:32 Dose: 80 mg Sodium Chloride (Saline Flush) 10 ml FLUSH ASDIRECTED PRN PRN Reason: Keep Vein Open Last Admin: 08/27/16 13:10 Dose: 10 ml Zolpidem Tartrate (Ambien) 5 mg PO BEDTIME PRN PRN Reason: Sleep Last Admin: 08/27/16 21:40 Dose: 5 mg Discontinued Medications Citric Acid/Sodium Citrate (Bicitra Solution) 30 ml PO ONETIME ONE Stop: 08/26/16 04:53 Last Admin: 08/26/16 11:16 Dose: 30 ml Ephedrine Sulfate (Ephedrine Sulfate) Confirm Administered Dose 50 mg .ROUTE .STK-MED ONE Stop: 08/26/16 07:23 Ephedrine Sulfate (Ephedrine Sulfate) 15 mg IV .STK-MED ONE Stop: 08/26/16 16:07 Fentanyl (Sublimaze) Confirm Administered Dose 100 mcg .ROUTE .STK-MED ONE Stop: 08/26/16 07:23 Fentanyl (Sublimaze) 10 mcg .XX .STK-MED ONE Stop: 08/26/16 16:07 Glycopyrrolate (Glycopyrrolate) Confirm Administered Dose 0.4 mg .ROUTE .STK- MED ONE Stop: 08/26/16 07:24 Glycopyrrolate (Glycopyrrolate) 0.2 mg IV .STK-MED ONE Stop: 08/26/16 16:07 Cefazolin Sodium/Dextrose 2 gm (/ Premix) 50 mls @ 100 mls/hr IV ONETIME ONE Stop: 08/26/16 05:21 Last Admin: 08/26/16 11:50 Dose: 100 mls/hr Cefazolin Sodium/Dextrose 2 gm (/ Premix) 50 mls @ as directed IV .STK-MED ONE Stop: 08/26/16 16:09 Oxytocin/Sodium Chloride (Pitocin In Ns 30 Unit/500 Ml) 30 unit in 500 mls @ as directed IV .STK-MED ONE Stop: 08/26/16 16:09 Ibuprofen (Motrin) 800 mg PO Q8H PRN PRN Reason: mild pain or fever Ketorolac Tromethamine (Toradol) 30 mg IVPUSH ONETIME ONE Stop: 08/26/16 08:31 Last Admin: 08/26/16 15:27 Dose: Not Given Ketorolac Tromethamine (Toradol) 15 mg IVPUSH Q6H JERAMY Stop: 08/27/16 06:01 Last Admin: 08/27/16 05:47 Dose: 15 mg Ketorolac Tromethamine (Toradol) 30 mg IVPUSH .STK-MED ONE Stop: 08/26/16 16:07 Measles/Mumps/Rubella Vaccine Live (M-M-R Ii Vaccine) 0.5 ml SUBCUT .ONCE ONE Stop: 08/28/16 00:13 Morphine Sulfate (Duramorph Pf) Confirm Administered Dose 5 mg .ROUTE .STK-MED ONE Stop: 08/26/16 07:23 Morphine Sulfate (Duramorph Pf) 0.2 mg .XX .STK-MED ONE Stop: 08/26/16 16:07 Ondansetron HCl (Zofran) 4 mg IV .STK-MED ONE Stop: 08/26/16 16:07 Phenylephrine HCl (Jesus Alberto-Synephrine) Confirm Administered Dose 10 mg .ROUTE .STK- MED ONE Stop: 08/26/16 07:23 Phenylephrine HCl (Jesus Alberto-Synephrine) Confirm Administered Dose 10 mg .ROUTE .STK- MED ONE Stop: 08/26/16 07:24 Phenylephrine HCl (Jesus Alberto-Synephrine) Confirm Administered Dose 10 mg .ROUTE .STK- MED ONE Stop: 08/26/16 07:25 Zolpidem Tartrate (Ambien) 5 mg PO ONETIME ONE Stop: 08/27/16 22:37 Last Admin: 08/27/16 22:50 Dose: 5 mg - My Orders Last 24 Hours: My Active Orders 08/27/16 21:23 Zolpidem [Ambien] 5 mg PO BEDTIME PRN 08/27/16 22:34 diphenhydrAMINE [Benadryl] 25 mg PO QID PRN 08/28/16 00:12 Vaccines to be Administered [RC] PER UNIT ROUTINE - Plan Plan:: Patient seen and examined. Agree with note as scribed on my behalf by Spring Ragland, MS3. -toys inspector 08/28/16 [id number]
[2016-08-28] MEDS: Ferrous Sulfate 325 MG Tab PO SCH (09:21)
[2016-08-28] MEDS: Prenatal Multivitamin with Calcium/Folic Acid/Iron Tab PO SCH (09:21)
[2016-08-28] MEDS: Loratadine 10 MG Tab PO SCH (09:21)
[2016-08-28] MEDS: Docusate Sodium 100 MG Cap PO PRN ×2 (09:21→19:33)
[2016-08-28] MEDS: Zolpidem 5 MG Tab PO PRN (22:19)
[2016-08-29] MEDS: Acetaminophen/oxyCODONE 325-5 MG Tab PO PRN ×2 (00:38→05:18)
[2016-08-29] MEDS: Ibuprofen 800 MG Tab PO PRN (00:38)
--- NOTE | 2016-08-29 07:53 | PCM.DCSUM1 ---
<Spring Ragland - Last Filed: 08/29/16 07:48> Discharge Summary - Hospital Course Free Text/Narrative:: Patient has remained stable throughout hospital course. has been able to ambulate as well has void both urine and stool on her own. She reports that her intense pruritus has decreased significantly. HPI Initial Comments: 1. Now day 3 s/p csection at 37 weeks 2. 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 O+ rubella equivocal, GBS- 4. History of BV in first trimester - treated 5. h/o recently sprained ankle. 6. intense itching - improving 7. positive oxycodone on UDS. 8. History of polysubstance abuse, and insufficient care. - Discharge Data Discharge Date: 08/29/16 Discharge Disposition: Home, Self-Care 01 Condition: Good - Discharge Diagnosis/Problem(s) (1) S/P repeat low transverse SNOMED Code(s): 741945128, 796401209, 182532778, [id number] ICD Code: Z98.891 - HISTORY OF UTERINE SCAR FROM PREVIOUS SURGERY Status: Acute (2) Intrahepatic cholestasis of SNOMED Code(s): 931182893 ICD Code: O26.619 - LIVER AND BILIARY TRACT DISORD IN , UNSP TRIMESTER; K83.1 - OBSTRUCTION OF BILE DUCT Status: Acute (3) Blood type O+ SNOMED Code(s): 141603967 ICD Code: Z67.40 - TYPE O BLOOD, RH POSITIVE Status: Acute (4) History of drug abuse SNOMED Code(s): 196701507 ICD Code: Z87.898 - PERSONAL HISTORY OF OTHER SPECIFIED CONDITIONS Status: Acute - Patient Summary/Data Hospital Course: Patient has remained stable in the post operative period. - Patient Instructions Diet: Usual Diet as Tolerated, Regular Diet as Tolerated Activity: No Lifting Over 20 Pounds, No Strenuous Activities (Pelvic rest for 6 weeks. ) Driving: Do Not Drive Showering/Bathing: May Shower Wound/Incision Care: Keep Operative Site/Wound Site Clean and Dry (May shower then pat dry. ) Notify Provider of: Fever, Increased Pain, Swelling and Redness, Drainage, Nausea and/or Vomiting - Discharge Plan Prescriptions/Med Rec: Acetaminophen/oxyCODONE [Percocet 325-5 MG] 2 tab PO Q4H PRN #30 tablet PRN Reason: Pain Docusate Sodium [Colace] 100 mg PO Q12H PRN #60 cap PRN Reason: Constipation Ferrous Sulfate 325 mg PO BID #6 tablet Ibuprofen [IJD: Ibuprofen] 600 mg PO Q6H PRN #30 tablet PRN Reason: Pain Home Medications: Home Meds Vit W-Ca,Fe,FA(<1 mg) [ Vitamins] 1 each PO DAILY 08/26/16 [ History] Acetaminophen/oxyCODONE [Percocet 325-5 MG] 2 tab PO Q4H PRN #30 tablet [Rx] Docusate Sodium [Colace] 100 mg PO Q12H PRN #60 cap 08/28/16 [Rx] Ferrous Sulfate 325 mg PO BID #6 tablet 08/28/16 [Rx] Ibuprofen [IJD: Ibuprofen] 600 mg PO Q6H PRN #30 tablet 08/28/16 [Rx] Patient Handouts: Home Care Instructions for Mom, Care After Delivery Referrals: Nicolette Vu MD [Primary Care Provider] - (Staple Removal on FridaySeptember 03 at 9:[address] Marquez at [facility]. ) - General Info Date of Service: 08/29/16 Admission Dx/Problem (Free Text: Assessment: 1. Now 2 day s/p csection at 37 weeks 2. 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 O+ rubella equivocal, GBS- 4. History of BV in first trimester - treated 5. h/o recently sprained ankle. 6. intense itching - improving 7. positive oxycodone on UDS. 8. History of polysubstance abuse, and insufficient care. Subjective Update: Patient has remained stable throughout hospital course. has been able to ambulate as well has void both urine and stool on her own. She reports that her intense pruritus has decreased significantly. Functional Status: Reports: pain controlled, tolerating diet, ambulating, urinating - Review of Systems General: Denies: Fever, Chills HEENT: Reports: no symptoms Pulmonary: Denies: shortness of breath, cough, wheezing Cardiovascular: Reports: No Symptoms Gastrointestinal: Denies: Nausea, Vomiting Genitourinary: Denies: dysuria, frequency, burning Musculoskeletal: Reports: no symptoms Skin: Reports: no symptoms Neurological: Reports: No Symptoms Psychiatric: Reports: no symptoms - Patient Data Vitals - Most Recent: Last Vital Signs Temp 97.9 F 08/29/16 05:00 Pulse 82 08/29/16 05:00 Resp 18 08/29/16 05:00 BP 122/68 08/29/16 05:00 Pulse Ox 98 08/29/16 05:00 Weight - Most Recent: 69.853 kg Med Orders - Current: Current Medications Acetaminophen (Tylenol) 650 mg PO Q6H PRN PRN Reason: mild pain or fever Diphenhydramine HCl (Benadryl) 25 mg IVPUSH Q6H PRN PRN Reason: Itching or Nausea Last Admin: 08/27/16 13:09 Dose: 25 mg Diphenhydramine HCl (Benadryl) 25 mg PO QID PRN PRN Reason: Itching Docusate Sodium (Colace) 100 mg PO Q12H PRN PRN Reason: Constipation Last Admin: 08/28/16 19:33 Dose: 100 mg Ephedrine Sulfate (Ephedrine Sulfate) 5 mg IVPUSH SEECOMMENT PRN PRN Reason: Other Famotidine (Pepcid) 20 mg IVPUSH BID PRN PRN Reason: Itching Last Admin: 08/27/16 06:05 Dose: 20 mg Ferrous Sulfate (Ferrous Sulfate) 325 mg PO BRK JERAMY Last Admin: 08/28/16 09:21 Dose: 325 mg Hydrocortisone (Hydrocortisone 1% Crm) 0 gm TOP ASDIRECTED PRN PRN Reason: Itching Last Admin: 08/26/16 21:29 Dose: 1 gm Oxytocin/Sodium Chloride (Pitocin In Ns 30 Unit/500 Ml) 30 unit in 500 mls @ 500 mls/hr IV TITRATE JERAMY; 500 MUNITS/MIN PRN Reason: Protocol Last Titration: 08/26/16 16:13 Dose: 0 munits/min, 0 mls/hr Lactated Ringer's (Ringers, Lactated) 1,000 mls @ 125 mls/hr IV ASDIRECTED JERAMY Last Admin: 08/26/16 10:58 Dose: 125 mls/hr Lactated Ringer's (Ringers, Lactated) 1,000 mls @ 125 mls/hr IV ASDIRECTED JERAMY Ibuprofen (Motrin) 800 mg PO Q8H PRN PRN Reason: mild pain or fever Last Admin: 08/29/16 00:38 Dose: 800 mg Loratadine (Claritin) 10 mg PO DAILY [facility] Last Admin: 08/28/16 09:21 Dose: 10 mg Methylergonovine Maleate (Methergine) 0.2 mg IM ONETIME PRN PRN Reason: Excessive Vaginal Bleeding Misoprostol (Cytotec) 800 mcg RECTAL ASDIRECTED PRN PRN Reason: Bleeding Naloxone HCl (Narcan) 0.1 mg IVPUSH SEECOMMENT PRN PRN Reason: Respiratory Depression Ondansetron HCl (Zofran) 4 mg IVPUSH Q4H PRN PRN Reason: Nausea/Vomiting Ondansetron HCl (Zofran) 4 mg IV Q4H PRN PRN Reason: Nausea/Vomiting Oxycodone/Acetaminophen (Percocet 325-5 Mg) 1 tab PO Q4H PRN PRN Reason: Pain (moderate 4-6) Oxycodone/Acetaminophen (Percocet 325-5 Mg) 2 tab PO Q4H PRN PRN Reason: Pain (moderate 4-6) Last Admin: 08/29/16 05:18 Dose: 2 tab Prenat Multivit/Porter/Iron/Folic Ac ( Plus Iron) 1 each PO DAILY [facility] Last Admin: 08/28/16 09:21 Dose: 1 each Simethicone (Simethicone) 80 mg PO Q4H PRN PRN Reason: Gas Last Admin: 08/28/16 19:32 Dose: 80 mg Sodium Chloride (Saline Flush) 10 ml FLUSH ASDIRECTED PRN PRN Reason: Keep Vein Open Last Admin: 08/27/16 13:10 Dose: 10 ml Zolpidem Tartrate (Ambien) 5 mg PO BEDTIME PRN PRN Reason: Sleep Last Admin: 08/28/16 22:19 Dose: 5 mg Discontinued Medications Citric Acid/Sodium Citrate (Bicitra Solution) 30 ml PO ONETIME ONE Stop: 08/26/16 04:53 Last Admin: 08/26/16 11:16 Dose: 30 ml Ephedrine Sulfate (Ephedrine Sulfate) Confirm Administered Dose 50 mg .ROUTE .STK-MED ONE Stop: 08/26/16 07:23 Ephedrine Sulfate (Ephedrine Sulfate) 15 mg IV .STK-MED ONE Stop: 08/26/16 16:07 Fentanyl (Sublimaze) Confirm Administered Dose 100 mcg .ROUTE .STK-MED ONE Stop: 08/26/16 07:23 Fentanyl (Sublimaze) 10 mcg .XX .STK-MED ONE Stop: 08/26/16 16:07 Glycopyrrolate (Glycopyrrolate) Confirm Administered Dose 0.4 mg .ROUTE .STK- MED ONE Stop: 08/26/16 07:24 Glycopyrrolate (Glycopyrrolate) 0.2 mg IV .STK-MED ONE Stop: 08/26/16 16:07 Cefazolin Sodium/Dextrose 2 gm (/ Premix) 50 mls @ 100 mls/hr IV ONETIME ONE Stop: 08/26/16 05:21 Last Admin: 08/26/16 11:50 Dose: 100 mls/hr Cefazolin Sodium/Dextrose 2 gm (/ Premix) 50 mls @ as directed IV .STK-MED ONE Stop: 08/26/16 16:09 Oxytocin/Sodium Chloride (Pitocin In Ns 30 Unit/500 Ml) 30 unit in 500 mls @ as directed IV .STK-MED ONE Stop: 08/26/16 16:09 Ibuprofen (Motrin) 800 mg PO Q8H PRN PRN Reason: mild pain or fever Ketorolac Tromethamine (Toradol) 30 mg IVPUSH ONETIME ONE Stop: 08/26/16 08:31 Last Admin: 08/26/16 15:27 Dose: Not Given Ketorolac Tromethamine (Toradol) 15 mg IVPUSH Q6H JERAMY Stop: 08/27/16 06:01 Last Admin: 08/27/16 05:47 Dose: 15 mg Ketorolac Tromethamine (Toradol) 30 mg IVPUSH .STK-MED ONE Stop: 08/26/16 16:07 Measles/Mumps/Rubella Vaccine Live (M-M-R Ii Vaccine) 0.5 ml SUBCUT .ONCE ONE Stop: 08/28/16 00:13 Morphine Sulfate (Duramorph Pf) Confirm Administered Dose 5 mg .ROUTE .STK-MED ONE Stop: 08/26/16 07:23 Morphine Sulfate (Duramorph Pf) 0.2 mg .XX .STK-MED ONE Stop: 08/26/16 16:07 Ondansetron HCl (Zofran) 4 mg IV .STK-MED ONE Stop: 08/26/16 16:07 Phenylephrine HCl (Jesus Alberto-Synephrine) Confirm Administered Dose 10 mg .ROUTE .STK- MED ONE Stop: 08/26/16 07:23 Phenylephrine HCl (Jesus Alberto-Synephrine) Confirm Administered Dose 10 mg .ROUTE .STK- MED ONE Stop: 08/26/16 07:24 Phenylephrine HCl (Jesus Alberto-Synephrine) Confirm Administered Dose 10 mg .ROUTE .STK- MED ONE Stop: 08/26/16 07:25 Zolpidem Tartrate (Ambien) 5 mg PO ONETIME ONE Stop: 08/27/16 22:37 Last Admin: 08/27/16 22:50 Dose: 5 mg - Exam General: Reports: alert, oriented HEENT: Reports: Pupils equal Neck: Reports: supple Lungs: Reports: Clear to auscultation, Normal respiratory effort Cardiovascular: Reports: Regular Rate, Regular Rhythm Abdomen: Reports: bowel sounds present, soft, no distension (Female) Exam: Deferred Rectal (Female) Exam: Deferred Back Exam: Reports: Normal Inspection Extremities: Reports: no edema Skin: Reports: warm, dry, intact Wound/Incisions: Reports: healing well, no drainage Neurological: Reports: no new focal deficit Psy/Mental Status: Reports: alert, normal affect, normal mood *Q Meaningful Use (DIS) - VTE *Q VTE Criteria *Q: - Stroke *Q Stroke Criteria *Q: - AMI *Q AMI Criteria *Q: <Nicolette Vu - Last Filed: 08/29/16 15:05> Discharge Summary - Discharge Summary/Plan Comment Discharge Summary/Plan Comment: Patient seen and examined. Agree with note described on my behalf by Spring Ragland MS 3. -[facility] 08/29/16 [id number] - Patient Data Vitals - Most Recent: Last Vital Signs Temp 97.7 F 08/29/16 08:00 Pulse 71 08/29/16 08:00 Resp 20 08/29/16 08:00 BP 118/67 08/29/16 08:00 Pulse Ox 99 08/29/16 08:00 I&O - Last 24 hours: Intake & Output 05/25/17 05/25/17 05/25/17 06:59 14:59 22:59 Intake Total 600 Balance 600 Med Orders - Current: Current Medications Discontinued Medications Acetaminophen (Tylenol) 650 mg PO Q6H PRN PRN Reason: mild pain or fever Citric Acid/Sodium Citrate (Bicitra Solution) 30 ml PO ONETIME ONE Stop: 08/26/16 04:53 Last Admin: 08/26/16 11:16 Dose: 30 ml Diphenhydramine HCl (Benadryl) 25 mg IVPUSH Q6H PRN PRN Reason: Itching or Nausea Last Admin: 08/27/16 13:09 Dose: 25 mg Diphenhydramine HCl (Benadryl) 25 mg PO QID PRN PRN Reason: Itching Docusate Sodium (Colace) 100 mg PO Q12H PRN PRN Reason: Constipation Last Admin: 08/28/16 19:33 Dose: 100 mg Ephedrine Sulfate (Ephedrine Sulfate) Confirm Administered Dose 50 mg .ROUTE .STK-MED ONE Stop: 08/26/16 07:23 Ephedrine Sulfate (Ephedrine Sulfate) 5 mg IVPUSH SEECOMMENT PRN PRN Reason: Other Ephedrine Sulfate (Ephedrine Sulfate) 15 mg IV .STK-MED ONE Stop: 08/26/16 16:07 Famotidine (Pepcid) 20 mg IVPUSH BID PRN PRN Reason: Itching Last Admin: 08/27/16 06:05 Dose: 20 mg Fentanyl (Sublimaze) Confirm Administered Dose 100 mcg .ROUTE .STK-MED ONE Stop: 08/26/16 07:23 Fentanyl (Sublimaze) 10 mcg .XX .STK-MED ONE Stop: 08/26/16 16:07 Ferrous Sulfate (Ferrous Sulfate) 325 mg PO BRK JERAMY Last Admin: 08/29/16 09:30 Dose: 325 mg Glycopyrrolate (Glycopyrrolate) Confirm Administered Dose 0.4 mg .ROUTE .STK- MED ONE Stop: 08/26/16 07:24 Glycopyrrolate (Glycopyrrolate) 0.2 mg IV .STK-MED ONE Stop: 08/26/16 16:07 Hydrocortisone (Hydrocortisone 1% Crm) 0 gm TOP ASDIRECTED PRN PRN Reason: Itching Last Admin: 08/26/16 21:29 Dose: 1 gm Cefazolin Sodium/Dextrose 2 gm (/ Premix) 50 mls @ 100 mls/hr IV ONETIME ONE Stop: 08/26/16 05:21 Last Admin: 08/26/16 11:50 Dose: 100 mls/hr Oxytocin/Sodium Chloride (Pitocin In Ns 30 Unit/500 Ml) 30 unit in 500 mls @ 500 mls/hr IV TITRATE JERAMY; 500 MUNITS/MIN PRN Reason: Protocol Last Titration: 08/26/16 16:13 Dose: 0 munits/min, 0 mls/hr Lactated Ringer's (Ringers, Lactated) 1,000 mls @ 125 mls/hr IV ASDIRECTED JERAMY Last Admin: 08/26/16 10:58 Dose: 125 mls/hr Lactated Ringer's (Ringers, Lactated) 1,000 mls @ 125 mls/hr IV ASDIRECTED [facility] Cefazolin Sodium/Dextrose 2 gm (/ Premix) 50 mls @ as directed IV .STK-MED ONE Stop: 08/26/16 16:09 Oxytocin/Sodium Chloride (Pitocin In Ns 30 Unit/500 Ml) 30 unit in 500 mls @ as directed IV .STK-MED ONE Stop: 08/26/16 16:09 Ibuprofen (Motrin) 800 mg PO Q8H PRN PRN Reason: mild pain or fever Ibuprofen (Motrin) 800 mg PO Q8H PRN PRN Reason: mild pain or fever Last Admin: 08/29/16 00:38 Dose: 800 mg Ketorolac Tromethamine (Toradol) 30 mg IVPUSH ONETIME ONE Stop: 08/26/16 08:31 Last Admin: 08/26/16 15:27 Dose: Not Given Ketorolac Tromethamine (Toradol) 15 mg IVPUSH Q6H [facility] Stop: 08/27/16 06:01 Last Admin: 08/27/16 05:47 Dose: 15 mg Ketorolac Tromethamine (Toradol) 30 mg IVPUSH .STK-MED ONE Stop: 08/26/16 16:07 Loratadine (Claritin) 10 mg PO DAILY [facility] Last Admin: 08/29/16 09:30 Dose: 10 mg Measles/Mumps/Rubella Vaccine Live (M-M-R Ii Vaccine) 0.5 ml SUBCUT .ONCE ONE Stop: 08/28/16 00:13 Last Admin: 08/29/16 09:53 Dose: 0.5 ml Methylergonovine Maleate (Methergine) 0.2 mg IM ONETIME PRN PRN Reason: Excessive Vaginal Bleeding Misoprostol (Cytotec) 800 mcg RECTAL ASDIRECTED PRN PRN Reason: Bleeding Morphine Sulfate (Duramorph Pf) Confirm Administered Dose 5 mg .ROUTE .STK-MED ONE Stop: 08/26/16 07:23 Morphine Sulfate (Duramorph Pf) 0.2 mg .XX .STK-MED ONE Stop: 08/26/16 16:07 Naloxone HCl (Narcan) 0.1 mg IVPUSH SEECOMMENT PRN PRN Reason: Respiratory Depression Ondansetron HCl (Zofran) 4 mg IVPUSH Q4H PRN PRN Reason: Nausea/Vomiting Ondansetron HCl (Zofran) 4 mg IV Q4H PRN PRN Reason: Nausea/Vomiting Ondansetron HCl (Zofran) 4 mg IV .STK-MED ONE Stop: 08/26/16 16:07 Oxycodone/Acetaminophen (Percocet 325-5 Mg) 1 tab PO Q4H PRN PRN Reason: Pain (moderate 4-6) Oxycodone/Acetaminophen (Percocet 325-5 Mg) 2 tab PO Q4H PRN PRN Reason: Pain (moderate 4-6) Last Admin: 08/29/16 05:18 Dose: 2 tab Phenylephrine HCl (Jesus Alberto-Synephrine) Confirm Administered Dose 10 mg .ROUTE .STK- MED ONE Stop: 08/26/16 07:23 Phenylephrine HCl (Jesus Alberto-Synephrine) Confirm Administered Dose 10 mg .ROUTE .STK- MED ONE Stop: 08/26/16 07:24 Phenylephrine HCl (Jesus Alberto-Synephrine) Confirm Administered Dose 10 mg .ROUTE .STK- MED ONE Stop: 08/26/16 07:25 Prenat Multivit/Porter/Iron/Folic Ac ( Plus Iron) 1 each PO DAILY JERAMY Last Admin: 08/29/16 09:52 Dose: 1 each Simethicone (Simethicone) 80 mg PO Q4H PRN PRN Reason: Gas Last Admin: 08/28/16 19:32 Dose: 80 mg Sodium Chloride (Saline Flush) 10 ml FLUSH ASDIRECTED PRN PRN Reason: Keep Vein Open Last Admin: 08/27/16 13:10 Dose: 10 ml Zolpidem Tartrate (Ambien) 5 mg PO BEDTIME PRN PRN Reason: Sleep Last Admin: 08/28/16 22:19 Dose: 5 mg Zolpidem Tartrate (Ambien) 5 mg PO ONETIME ONE Stop: 08/27/16 22:37 Last Admin: 08/27/16 22:50 Dose: 5 mg *Q Meaningful Use (DIS) - VTE *Q VTE Criteria *Q: - Stroke *Q Stroke Criteria *Q: - AMI *Q AMI Criteria *Q:
[2016-08-29 09:19] VITALS: BP 118/67
[2016-08-29] MEDS: Loratadine 10 MG Tab PO SCH (09:30)
[2016-08-29] MEDS: Ferrous Sulfate 325 MG Tab PO SCH (09:30)
[2016-08-29] MEDS: Prenatal Multivitamin with Calcium/Folic Acid/Iron Tab PO SCH (09:52)
== END 2016-08-29 10:15 | disposition home or self-care (01) | DRG 765 ==
LOC: EEVIPCON 04:53 → DL.OB 04:53 → OBSVTOIN 12:09 → DL.MS 08-28 01:24 → DL.OB 08-28 02:48 → DL.MS 08-28 08:06
PROVIDERS: ADMIT Family Medicine; ATTEND Family Medicine
PROC: 10D00Z1 Extraction of Products of Conception, Low, Open Approach (ICD-10-PCS; principal; 2016-08-26)
DX: O34.211 Maternal care for low transverse scar from previous cesarean delivery (principal); K83.1 Obstruction of bile duct; O26.62 Liver and biliary tract disorders in childbirth; O98.42 Viral hepatitis complicating childbirth; Z3A.37 37 weeks gestation of pregnancy; Z37.0 Single live birth; O09.33 Supervision of pregnancy with insufficient antenatal care, third trimester; O99.814 Abnormal glucose complicating childbirth; F19.10 Other psychoactive substance abuse, uncomplicated; B19.20 Unspecified viral hepatitis C without hepatic coma; O99.334 Smoking (tobacco) complicating childbirth
CPT/HCPCS: 01961; 36415; 80305; 84450; 84460; 85025; 85027; 86850; 86900; 86901; 90707; 94010; A9270-GY; J0690; J1200; J1885; J2274; J2405; J2590; J3010; J3490; J7050; J7120; S0028

== ENCOUNTER 2017-03-14 15:03 | Emergency (ER) | payer MEDICAID, SELFPAY ==
[2017-03-14] MEDS ORDERED: Sodium Chloride 0.9% 10 ML Syringe FLUSH PRN (15:31)
[2017-03-14] MEDS ORDERED: Sodium Chloride 0.9% 1,000 ML IV ONE (15:32)
--- NOTE | 2017-03-14 15:45 | EDM.PDOC ---
ED HPI GENERAL MEDICAL PROBLEM - General Chief Complaint: Back Pain or Injury Stated Complaint: SIDE AND LOWER BACK SEVERE PAINS, [id number] Time Seen by Provider: 03/14/17 15:36 Source of Information: Reports: Patient, RN, RN Notes Reviewed History Limitations: Reports: No Limitations - History of Present Illness INITIAL COMMENTS - FREE TEXT/NARRATIVE: Pt presents to the ER with c/o RLQ pain radiating around to the back. Pt states it began about 2 days ago and has been getting worse. She states the pain is sharp and rates it 7/10. She denies problems with urination or BM. She denies fever, chills, cough, sore throat, N/V/D, chest pain. She states she does have SOB at times with the pain. She states she still has her gallbladder and her appendix. States LMP was the beginning of February. Onset: Gradual Onset Date: 03/12/17 Location: Reports: Abdomen Quality: Reports: Sharp Severity: Moderate Improves with: Reports: None Worsens with: Reports: Movement Associated Symptoms: Reports: No Other Symptoms Treatments DIRECTOR OF FRONT OFFICE: Reports: Acetaminophen, NSAIDS Right Lower Back Pain Score (Numeric/FACES): 7 - Related Data Allergies Allergy/AdvReac Type Severity Reaction Status Date / Time No Known Allergies Allergy Verified 08/26/16 06:58 Home Meds: Home Meds Ibuprofen [IJD: Ibuprofen] 600 mg PO Q6H PRN #30 tablet 08/28/16 [Rx] Past Medical History HEENT History: Reports: Other (See Below) Other HEENT History: Glasses Other Gastrointestinal History: Cholestasis JACK SETTER History: Reports: , Spontaneous Other OB/BYN History: menarche Psychiatric History: Reports: Addiction - Infectious Disease History Infectious Disease History: Reports: Hepatitis C - Past Surgical History Female Surgical History: Reports: Section Social & Family History - Family History Family Medical History: Noncontributory - Tobacco Use Smoking Status *Q: Current Every Day Smoker Years of Tobacco use: 15 Packs/Tins Daily: 0.5 Used Tobacco, but Quit: No Second Hand Smoke Exposure: Yes - Caffeine Use Caffeine Use: Reports: Coffee, Energy Drinks, Soda - Alcohol Use Days Per Week of Alcohol Use: 0 - Recreational Drug Use Recreational Drug Use: Yes Drug Use in Last 12 Months: Yes Recreational Drug Type: Reports: Marijuana/Hashish Recreational Drug Use Frequency: Not Used In Over 6 Months ED ROS GENERAL - Review of Systems Review Of Systems: ROS reveals no pertinent complaints other than HPI. ED EXAM, GI/ABD - Physical Exam Exam: See Below Exam Limited By: No Limitations General Appearance: Alert, WD/WN, Moderate Distress Eyes: Bilateral: Normal Appearance Ears: Normal External Exam, Hearing Grossly Normal Nose: Normal Inspection Throat/Mouth: Normal Inspection, Normal Voice, No Airway Compromise Head: Atraumatic, Normocephalic Neck: Normal Inspection, Supple, Non-Tender, Full Range of Motion Respiratory/Chest: No Respiratory Distress, Lungs Clear, Normal Breath Sounds, No Accessory Muscle Use, Chest Non-Tender Cardiovascular: Normal Peripheral Pulses, Regular Rate, Rhythm, No Edema, No Gallop, No JVD, No Murmur, No Rub GI/Abdominal Exam: Normal Bowel Sounds, Soft, No Organomegaly, No Distention, Tender (RLQ) (Female) Exam: Deferred Rectal (Female) Exam: Deferred Back Exam: Normal Inspection, CVA Tenderness (R) Extremities: Normal Inspection, Limited Range of Motion (Pt lifts the right leg with her hands because she states it hurts in her abdomen) Neurological: Alert, Oriented, Normal Cognition, Normal Gait, No Motor/Sensory Deficits Psychiatric: Normal Affect, Normal Mood, Tearful Skin Exam: Warm, Dry, Intact, Normal Color, No Rash Lymphatic: No Adenopathy Course - Vital Signs Last Recorded V/S: Last Vital Signs Temp 101.5 F H 03/14/17 18:21 Pulse 114 H 03/14/17 18:21 Resp 20 03/14/17 18:21 BP 125/74 03/14/17 18:21 Pulse Ox 97 03/14/17 18:21 - Orders/Labs/Meds Orders: Active Orders 24 hr Category Date Time Status Peripheral IV Care [RC] . DIRECTED Care 03/14/17 15:32 Active CULTURE BLOOD [BC] Stat Lab 03/14/17 14:54 Received CULTURE BLOOD [BC] Stat Lab 03/14/17 15:42 Received Blood Culture x2 Reflex Set [OM.PC] Stat Oth 03/14/17 15:32 Ordered Peripheral IV Insertion Adult [OM.PC] Stat Oth 03/14/17 15:31 Ordered Labs: Laboratory Tests 12/08/17 12/08/17 12/08/17 Range/Units 15:35 15:35 15:35 WBC (5.0-10.0) 10^3/uL RBC (4.2-5.4) 10^6/uL Hgb (12.0-16.0) g/dL Hct (37.0-47.0) % MCV (80-100) fL MCH (27.0-34.0) pg MCHC (33.0-35.0) g/dL Plt Count (150-450) 10^3/uL Neut % (Auto) (42.2-75.2) % Lymph % (Auto) (20.5-50.1) % [place] % (Auto) (2-8) % Eos % (Auto) (1.0-3.0) % Baso % (Auto) (0.0-1.0) % Sodium (135-145) mmol/L Potassium (3.6-5.0) mmol/L Chloride (101-111) mmol/L Carbon Dioxide (21.0-31.0) mmol/L Anion Gap BUN (7-18) mg/dL Creatinine (0.6-1.3) mg/dL Est Cr Clr Drug Dosing mL/min Estimated GFR (MDRD) BUN/Creatinine Ratio Glucose (74-105) mg/dL Lactic Acid (0.5-2.2) mmol/L Calcium (8.4-10.2) mg/dl Total Bilirubin (0.2-1.0) mg/dL AST (10-42) IU/L ALT (10-60) IU/L Alkaline Phosphatase (42-121) IU/L Total Protein (6.7-8.2) g/dl Albumin (3.2-5.5) g/dl Globulin Albumin/Globulin Ratio Amylase (28-100) U/L Lipase (22-51) U/L HCG, Quant (0-25) mIU/ml Beta HCG, Quant mIU/ml Urine Color Yellow (YELLOW) Urine Appearance Cloudy (CLEAR) Urine pH 6.0 (5.0-9.0) Ur Specific [place] 1.010 (1.005-1.030) Urine Protein 100 H (NEGATIVE) Urine Glucose (UA) Negative (NEGATIVE) Urine Ketones 40 H (NEGATIVE) Urine Occult Blood Small H (NEGATIVE) Urine Nitrite Negative (NEGATIVE) Urine Bilirubin Negative (NEGATIVE) Urine Urobilinogen 0.2 (0.2-1.0) mg/dL Ur Leukocyte Esterase Moderate H (NEGATIVE) Urine RBC 0-5 /HPF Urine WBC >100 H (0-5/HPF) /HPF Ur Epithelial Cells Few /HPF Urine Bacteria Few (0-FEW/HPF) /HPF Urine Other See note Urine HCG, Qual Positive Urine Opiates Screen Negative (NEGATIVE) Ur Oxycodone Screen Positive H (NEGATIVE) Urine Methadone Screen Negative (NEGATIVE) Ur Barbiturates Screen Negative (NEGATIVE) U Tricyclic Antidepress Negative (NEGATIVE) Ur Phencyclidine Scrn Negative (NEGATIVE) Ur Amphetamine Screen Positive H (NEGATIVE) U Methamphetamines Scrn Positive H (NEGATIVE) Urine MDMA Screen Negative (NEGATIVE) U Benzodiazepines Scrn Negative (NEGATIVE) Urine Cocaine Screen Negative (NEGATIVE) U Marijuana (THC) Screen Negative (NEGATIVE) 03/14/17 03/14/17 03/14/17 Range/Units 15:42 15:42 15:42 WBC 16.7 H (5.0-10.0) 10^3/uL RBC 4.37 (4.2-5.4) 10^6/uL Hgb 12.8 (12.0-16.0) g/dL Hct 37.4 (37.0-47.0) % MCV 85.6 D (80-100) fL MCH 29.3 (27.0-34.0) pg MCHC 34.2 (33.0-35.0) g/dL Plt Count 283 (150-450) 10^3/uL Neut % (Auto) 89.8 H (42.2-75.2) % Lymph % (Auto) 4.4 L (20.5-50.1) % [place] % (Auto) 5.6 (2-8) % Eos % (Auto) 0.1 L (1.0-3.0) % Baso % (Auto) 0.1 (0.0-1.0) % Sodium 130 L (135-145) mmol/L Potassium 3.5 L (3.6-5.0) mmol/L Chloride 97 L (101-111) mmol/L Carbon Dioxide 20.0 L (21.0-31.0) mmol/L Anion Gap 16.5 BUN 10 (7-18) mg/dL Creatinine 0.7 (0.6-1.3) mg/dL Est Cr Clr Drug Dosing 103.32 mL/min Estimated GFR (MDRD) > 60 BUN/Creatinine Ratio 14.28 Glucose 125 H (74-105) mg/dL Lactic Acid 0.7 (0.5-2.2) mmol/L Calcium 9.6 (8.4-10.2) mg/dl Total Bilirubin 0.8 (0.2-1.0) mg/dL AST 84 H (10-42) IU/L ALT 143 H (10-60) IU/L Alkaline Phosphatase 83 (42-121) IU/L Total Protein 8.3 H (6.7-8.2) g/dl Albumin 3.9 (3.2-5.5) g/dl Globulin 4.4 Albumin/Globulin Ratio 0.89 Amylase 89 (28-100) U/L Lipase 17 L (22-51) U/L HCG, Quant (0-25) mIU/ml Beta HCG, Quant mIU/ml Urine Color (YELLOW) Urine Appearance (CLEAR) Urine pH (5.0-9.0) Ur Specific [place] (1.005-1.030) Urine Protein (NEGATIVE) Urine Glucose (UA) (NEGATIVE) Urine Ketones (NEGATIVE) Urine Occult Blood (NEGATIVE) Urine Nitrite (NEGATIVE) Urine Bilirubin (NEGATIVE) Urine Urobilinogen (0.2-1.0) mg/dL Ur Leukocyte Esterase (NEGATIVE) Urine RBC /HPF Urine WBC (0-5/HPF) /HPF Ur Epithelial Cells /HPF Urine Bacteria (0-FEW/HPF) /HPF Urine Other Urine HCG, Qual Urine Opiates Screen (NEGATIVE) Ur Oxycodone Screen (NEGATIVE) Urine Methadone Screen (NEGATIVE) Ur Barbiturates Screen (NEGATIVE) U Tricyclic Antidepress (NEGATIVE) Ur Phencyclidine Scrn (NEGATIVE) Ur Amphetamine Screen (NEGATIVE) U Methamphetamines Scrn (NEGATIVE) Urine MDMA Screen (NEGATIVE) U Benzodiazepines Scrn (NEGATIVE) Urine Cocaine Screen (NEGATIVE) U Marijuana (THC) Screen (NEGATIVE) 03/14/17 Range/Units 15:42 WBC (5.0-10.0) 10^3/uL RBC (4.2-5.4) 10^6/uL Hgb (12.0-16.0) g/dL Hct (37.0-47.0) % MCV (80-100) fL MCH (27.0-34.0) pg MCHC (33.0-35.0) g/dL Plt Count (150-450) 10^3/uL Neut % (Auto) (42.2-75.2) % Lymph % (Auto) (20.5-50.1) % [place] % (Auto) (2-8) % Eos % (Auto) (1.0-3.0) % Baso % (Auto) (0.0-1.0) % Sodium (135-145) mmol/L Potassium (3.6-5.0) mmol/L Chloride (101-111) mmol/L Carbon Dioxide (21.0-31.0) mmol/L Anion Gap BUN (7-18) mg/dL Creatinine (0.6-1.3) mg/dL Est Cr Clr Drug Dosing mL/min Estimated GFR (MDRD) BUN/Creatinine Ratio Glucose (74-105) mg/dL Lactic Acid (0.5-2.2) mmol/L Calcium (8.4-10.2) mg/dl Total Bilirubin (0.2-1.0) mg/dL AST (10-42) IU/L ALT (10-60) IU/L Alkaline Phosphatase (42-121) IU/L Total Protein (6.7-8.2) g/dl Albumin (3.2-5.5) g/dl Globulin Albumin/Globulin Ratio Amylase (28-100) U/L Lipase (22-51) U/L HCG, Quant > 1371 H (0-25) mIU/ml Beta HCG, Quant [id number] mIU/ml Urine Color (YELLOW) Urine Appearance (CLEAR) Urine pH (5.0-9.0) Ur Specific [place] (1.005-1.030) Urine Protein (NEGATIVE) Urine Glucose (UA) (NEGATIVE) Urine Ketones (NEGATIVE) Urine Occult Blood (NEGATIVE) Urine Nitrite (NEGATIVE) Urine Bilirubin (NEGATIVE) Urine Urobilinogen (0.2-1.0) mg/dL Ur Leukocyte Esterase (NEGATIVE) Urine RBC /HPF Urine WBC (0-5/HPF) /HPF Ur Epithelial Cells /HPF Urine Bacteria (0-FEW/HPF) /HPF Urine Other Urine HCG, Qual Urine Opiates Screen (NEGATIVE) Ur Oxycodone Screen (NEGATIVE) Urine Methadone Screen (NEGATIVE) Ur Barbiturates Screen (NEGATIVE) U Tricyclic Antidepress (NEGATIVE) Ur Phencyclidine Scrn (NEGATIVE) Ur Amphetamine Screen (NEGATIVE) U Methamphetamines Scrn (NEGATIVE) Urine MDMA Screen (NEGATIVE) U Benzodiazepines Scrn (NEGATIVE) Urine Cocaine Screen (NEGATIVE) U Marijuana (THC) Screen (NEGATIVE) Meds: Medications Discontinued Medications Generic Name Dose Route Start Last Admin Trade Name Freq PRN Reason Stop Dose Admin Acetaminophen 650 mg 03/14/17 18:25 03/14/17 18:32 Tylenol PO 03/14/17 18:26 650 mg NOW ONE Administration Cefazolin Sodium 1 gm 03/14/17 18:21 03/14/17 18:46 Ancef IVPUSH 03/14/17 18:22 Not Given ONETIME ONE Ceftriaxone Sodium 1 gm 03/14/17 18:23 03/14/17 18:30 Rocephin IVPUSH 03/14/17 18:24 1 gm ONETIME ONE Administration Sodium Chloride 1,000 mls @ 999 mls/hr 03/14/17 15:32 03/14/17 16:08 Normal Saline IV 03/14/17 16:32 999 mls/hr .BOLUS ONE Administration Sodium Chloride 10 ml 03/14/17 15:31 03/14/17 16:11 Saline Flush FLUSH 10 ml ASDIRECTED PRN Administration Keep Vein Open - Radiology Interpretation Free Text/Narrative:: OB ultrasound: 11 weeks, 3 days intrauterine , HR 183 See rad report - Re-Assessments/Exams Free Text/Narrative Re-Assessment/Exam: 03/14/17 19:39 Pt was unaware that she was . Patient is very tearful and anxious. Discussed transfer for the patient due to possibility of an appendicitis. Departure - Departure Time of Disposition: 18:27 Disposition: DC/Tfer to Acute Hospital 02 Condition: Fair Clinical Impression: Abdominal pain complicating UTI (urinary tract infection) Qualifiers: Urinary tract infection type: site unspecified Hematuria presence: without hematuria Qualified Code(s): N39.0 - Urinary tract infection, site not specified Elevated WBC count Qualifiers: Leukocytosis type: unspecified Qualified Code(s): D72.829 - Elevated white blood cell count, unspecified - Discharge Information Referrals: Zach Reddy [Ordering Only Provider] - Forms: ED Department Discharge, Interfacility Transfer EMTALA - My Orders Last 24 Hours: My Active Orders 03/14/17 14:54 CULTURE BLOOD [BC] Stat 03/14/17 15:31 Peripheral IV Insertion Adult [OM.PC] Stat 03/14/17 15:32 Peripheral IV Care [RC] . DIRECTED Blood Culture x2 Reflex Set [OM.PC] Stat 03/14/17 15:42 CULTURE BLOOD [BC] Stat - Assessment/Plan Last 24 Hours: My Active Orders 03/14/17 14:54 CULTURE BLOOD [BC] Stat 03/14/17 15:31 Peripheral IV Insertion Adult [OM.PC] Stat 03/14/17 15:32 Peripheral IV Care [RC] . DIRECTED Blood Culture x2 Reflex Set [OM.PC] Stat 03/14/17 15:42 CULTURE BLOOD [BC] Stat
[2017-03-14 16:13] LABS: CHLORIDE,CL 97 mmol/L (101-111); SODIUM,NA 130 mmol/L (135-145)
[2017-03-14] MEDS ORDERED: ceFAZolin 1 GM Vial IVPUSH ONE (18:21)
[2017-03-14 18:22] VITALS: BP 125/74
[2017-03-14] MEDS ORDERED: cefTRIAXone 1 GM Vial IVPUSH ONE (18:23)
[2017-03-14] MEDS ORDERED: Acetaminophen 325 MG Tab PO ONE (18:25)
== END 2017-03-14 18:45 ==
LOC: DL.ED 15:03
DX: O23.41 Unspecified infection of urinary tract in pregnancy, first trimester (principal); O99.111 Other diseases of the blood and blood-forming organs and certain disorders involving the immune mechanism complicating pregnancy, first trimester; D72.829 Elevated white blood cell count, unspecified; O99.331 Smoking (tobacco) complicating pregnancy, first trimester; F17.210 Nicotine dependence, cigarettes, uncomplicated; Z3A.11 11 weeks gestation of pregnancy
CPT/HCPCS: 36415; 76815; 80053; 80305; 81001; 81025; 82150; 83605; 83690; 84702; 85025; 87040; 96361; 96374; 99285; A9270; J0696; J7030; J7050

== ENCOUNTER 2017-09-08 05:53 | Inpatient (IN) | payer MEDICAID ==
[2017-09-08] MEDS ORDERED: Ondansetron 4 MG Tab.DIS PO PRN (06:00)
[2017-09-08] MEDS ORDERED: Citric Acid/Sodium Citrate Solution 30 ML Cup PO ONE (06:00)
[2017-09-08] MEDS ORDERED: ceFAZolin 2 GM in Premix Bag 1 BAG IV ONE (06:00)
[2017-09-08] MEDS ORDERED: Lactated Ringers 1,000 ML IV SCH (06:00)
[2017-09-08] MEDS ORDERED: Methylergonovine 0.2 MG Tab PO PRN (06:00)
[2017-09-08] MEDS ORDERED: Sodium Chloride 0.9% 10 ML Syringe FLUSH PRN (06:00)
[2017-09-08] MEDS ORDERED: Tranexamic Acid 1,000 MG in Sodium Chloride 0.9% 100 ML IV PRN (06:00)
[2017-09-08] MEDS: Lactated Ringers 1,000 ML IV SCH ×3 (06:10→15:51)
[2017-09-08] MEDS ORDERED: Oxytocin/Normal Saline 60 UNIT/1,000 ML BAG ONE (06:25)
[2017-09-08] MEDS ORDERED: Famotidine 20 MG/2 ML SDV IVPUSH STA (07:34)
[2017-09-08] MEDS ORDERED: Oxytocin/Normal Saline 30 UNIT/500 ML BAG IV SCH (08:00)
[2017-09-08] MEDS ORDERED: ePHEDrine 50 MG/ML SDV IVPUSH PRN (09:05)
[2017-09-08] MEDS ORDERED: Acetaminophen 325 MG Tab PO PRN (09:05)
[2017-09-08] MEDS ORDERED: Naloxone 2 MG/2 ML Syringe IVPUSH PRN (09:05)
[2017-09-08] MEDS ORDERED: Ondansetron 4 MG/2 ML SDV IV PRN (09:05)
[2017-09-08] MEDS ORDERED: Methylergonovine 0.2 MG/1 ML Amp IM PRN (09:05)
[2017-09-08] MEDS ORDERED: Measles, Mumps & Rubella Vaccine 0.5 ML SDV SUBCUT ONE (09:05)
[2017-09-08] MEDS ORDERED: Acetaminophen/oxyCODONE 325-5 MG Tab PO PRN (09:05)
[2017-09-08] MEDS ORDERED: Oxytocin/Normal Saline 30 UNIT/500 ML BAG IV ONE (10:51)
[2017-09-08] MEDS: diphenhydrAMINE 50 MG/ML SDV IVPUSH PRN (11:31)
[2017-09-08] MEDS: Simethicone 80 MG Tab.Chew PO SCH ×2 (13:21→17:35)
[2017-09-08] MEDS ORDERED: Butorphanol 2 MG/ML SDV IVPUSH PRN (13:49)
[2017-09-08] MEDS: Ketorolac 30 MG/ML SDV IVPUSH SCH (14:42)
[2017-09-08] MEDS: Ferrous Sulfate 325 MG Tab PO SCH (17:35)
[2017-09-08] MEDS: Famotidine 20 MG/2 ML SDV IVPUSH PRN (17:40)
[2017-09-09] MEDS ORDERED: Lactated Ringers 1,000 ML IV ONE (00:25)
[2017-09-09] MEDS: Simethicone 80 MG Tab.Chew PO SCH ×5 (00:52→20:38)
[2017-09-09] MEDS: Ketorolac 30 MG/ML SDV IVPUSH SCH ×2 (00:52→03:05)
--- NOTE | 2017-09-09 01:44 | OR ---
DATE: 09/08/2017 PROCEDURE PERFORMED: Repeat low transverse section. INDICATION FOR PROCEDURE: Repeat at early term because of intrahepatic cholestasis of . PREPROCEDURE DIAGNOSES: 1. A 37-1/7 weeks' intrauterine based on an 11-week ultrasound. 2. 5, para 2-0-2-2. 3. Intrahepatic cholestasis of , recurrent. 4. Late and insufficient care. 5. History of spontaneous x2. 6. History of section x2. 7. Smoker. 8. History of illegal drug use including methamphetamine, marijuana, and oxycodone. Urine drug screens have been negative this . 9. Blood type O positive, rubella equivocal, group B Streptococcus negative. 10.History of pyelonephritis at 10 weeks' gestation. The patient did not complete appropriate course of antibiotics. 11.Family stressors due to illness of other family member. 12.History of low-lying placenta. 13.Need for assistance with transportation. 14.Hepatitis C carrier. POSTPROCEDURE DIAGNOSES: 1. A 37-1/7 weeks' intrauterine based on an 11-week ultrasound. 2. 5, para 3-0-2-3. 3. Intrahepatic cholestasis of , recurrent. 4. Late and insufficient care. 5. History of spontaneous x2. 6. History of section x3. 7. Smoker. 8. History of illegal drug use including methamphetamine, marijuana, and oxycodone. Urine drug screens have been negative this . 9. Blood type O positive, rubella equivocal, group B Streptococcus negative. 10.History of pyelonephritis at 10 weeks' gestation. The patient did not complete appropriate course of antibiotics. 11.Family stressors due to illness of other family member. 12.History of low-lying placenta. 13.Need for assistance with transportation. 14.Hepatitis C carrier. 15.Delivery of a viable female infant. BRIEF HISTORY: The patient is a 27-year-old female with the above-listed diagnoses, who presented to the hospital for planned section because of medical risk factors, specifically the intrahepatic cholestasis of . See the admission history and physical for full details. CONSENT: Discussed with the patient indications, risks, benefits, and alternatives of repeat low transverse section including risk of infection and plan for preoperative antibiotics; risk of bleeding to the point of requiring a blood transfusion as well as its inherent risks including, but not limited to, transfusion reaction or contraction of bloodborne diseases; risk of injury to internal organs or adjacent structures including, but not limited to, bowels, bladder, ureters, fallopian tubes, ovaries, uterus, and even potential injury to the baby, potential injury to any large blood vessels/nerves or veins, potential for complications for her or the baby who would require transfer to a higher level of care, and remote risk of . Her questions were answered. She agreed to proceed, and consent forms were signed and can be found in the paper chart. SURGEON: Nicolette Hyman MD TIN PLATER: Noni Klein MD PROCEDURE IN DETAIL: The patient was taken to the operating room, and spinal anesthesia obtained. Indwelling Huang catheter was placed. Abdomen was prepped and draped in the normal sterile fashion. Skin incision was made at 8:22 a.m with scalpel and carried down to the underlying fascia using cautery with the start. The fascia was then incised in the midline and extended bilaterally using cautery. Superior fascial edge was tented up, and rectus muscles dissected off bluntly and with cautery. Inferior fascia was then tented up, and rectus muscles also dissected off bluntly and with cautery. Peritoneal cavity entered with blunt finger dissection. An Andres O retractor placed, uterus inspected, and appropriate low transverse uterine hysterotomy site selected, and uterus incised with scalpel keeping the amniotic fluid sac intact. The hysterotomy site was extended using bandage scissors in order to avoid the larger blood vessels present on both sides of the uterus. Attempted to deliver the baby while still in the amniotic fluid sac however ruptured during delivery of the head. Remainder of the infant delivered easily thereafter with fundal pressure and gentle traction. The infant's nose and mouth were bulb suctioned, and 3-vessel umbilical cord doubly clamped and cut, and baby taken to the warmer for further evaluation. Cord blood sample was obtained, and then placenta delivered by manual extraction. Additional debris and trailing membranes removed with ring forceps, and uterus cleaned with 2 dry lap sponges. Hysterotomy site was closed with a running lock stitch of 0 Vicryl in the usual fashion and appeared hemostatic. Andres retractor was removed, and pericolic gutters were cleared of any clots and debris. Hysterotomy site reinspected and remained hemostatic. The peritoneal layer was closed with a single figure-of- eight stitch. Then, the fascia was closed with a running stitch of 0 looped PDS in the usual fashion. Subcutaneous tissues irrigated, and skin was closed with amanda. The patient tolerated procedure well, and there were no complications. End time was at 0859 hours. Baby was delivered at 0829 hours. FINDINGS: Viable female infant; weight 3060 g, 6 pounds 12 ounces; scores of 6 and 8. ESTIMATED BLOOD LOSS: 800 mL. FLUIDS: 1500 mL of crystalloid, 300 mL with Pitocin. URINE OUTPUT: 200 mL, clear. COMPLICATIONS: None. DISPOSITION: Mother to stay in the PACU at this time, and the baby will go down to the nursery for further management. [facility] /[id number] LEX
[2017-09-09] MEDS: Lactated Ringers 1,000 ML IV SCH (03:03)
[2017-09-09] MEDS: diphenhydrAMINE 50 MG/ML SDV IVPUSH PRN (03:04)
[2017-09-09] MEDS ORDERED: hydrOXYzine HCl 25 MG Tab PO PRN (07:46)
[2017-09-09] MEDS ORDERED: diphenhydrAMINE 50 MG Cap PO PRN (07:47)
[2017-09-09] MEDS: Prenatal Multivitamin with Calcium/Folic Acid/Iron Tab PO SCH (08:06)
[2017-09-09] MEDS: Ferrous Sulfate 325 MG Tab PO SCH ×2 (08:06→17:16)
[2017-09-09] MEDS: Docusate Sodium 100 MG Cap PO PRN ×2 (08:06→20:38)
[2017-09-09] MEDS: Acetaminophen/oxyCODONE 325-5 MG Tab PO PRN ×4 (08:07→21:20)
[2017-09-09] MEDS: Famotidine 20 MG/2 ML SDV IVPUSH PRN (08:07)
[2017-09-09] MEDS ORDERED: Butorphanol 2 MG/ML SDV ONE (09:53)
[2017-09-09] MEDS ORDERED: Morphine PF 1 MG/ML Amp ONE (09:53)
[2017-09-09] MEDS ORDERED: Ondansetron 4 MG/2 ML SDV IV ONE (09:53)
[2017-09-09] MEDS ORDERED: Bupivacaine 0.75%/D5W 2 ML Amp ONE (09:53)
[2017-09-09] MEDS ORDERED: Dexamethasone 4 MG/ML SDV IV ONE (09:53)
[2017-09-09] MEDS ORDERED: fentaNYL 100 MCG/2 ML SDV IV ONE (09:53)
[2017-09-09] MEDS ORDERED: ePHEDrine 50 MG/ML SDV IV ONE (09:53)
[2017-09-09] MEDS ORDERED: Ketorolac 30 MG/ML SDV IVPUSH ONE (09:53)
[2017-09-09] MEDS ORDERED: diphenhydrAMINE 50 MG/ML SDV IV ONE (09:53)
--- NOTE | 2017-09-09 09:54 | PN ---
DATE: 09/09/2017 SUBJECTIVE: Day #1 postop for repeat low transverse section. Mother states she is feeling well. She is ambulating within the room. She has been voiding without pain, has not had a bowel movement, is not sure if she has had flatulence. She would like Aquacel dressing over her incision site, so that she can resist scratching the area and feel better about showering. The patient is still having pruritus of arms, legs, and torso. She is bottlefeeding her infant. OBJECTIVE: Vital Signs: Temperature 97.9, pulse of 63, blood pressure 120/82, respiratory rate of 16, and SpO2 of 100% on room air. HEENT: Normocephalic, atraumatic. Mucosal membranes are moist. Heart: Regular without murmur. S1 and S2. Lungs: Clear to auscultation bilaterally. Abdomen: Soft. Fundus is firm at umbilicus. Low transverse incision site intact has bloody strikethrough on gauze dressing, no active bleeding. No induration, no fluid able to be expressed from incision. Skin: Redness over abdomen and legs from itching LABORATORY DATA: Hemoglobin 8.7, admission hemoglobin 12.7, platelets 218. ASSESSMENT: 1. Postoperative day #1. Repeat low transverse section. 2. A 37 and 1/7 weeks' intrauterine based on 11-week ultrasound. 3. 5, para 3-0-2-3. 4. Intrahepatic cholestasis of , recurrent. 5. Late and insufficient care. 6. History of spontaneous x2. 7. History of section x3. 8. Smoker. 9. History of illegal drug use. Urine drug screens have been negative this . 10.Blood type O positive, rubella equivocal, group B streptococcus negative. 11.History of pyelonephritis at 10 weeks' gestation without treatment. 12.Hepatitis C carrier. PLAN: Continue routine post section cares. New loose gauze dressing applied to the incision site. The patient instructed that she is able to shower, encouraged to take a short cold shower to improve sensation of itching. Aquacel can be applied after her shower. Expecting discharge home at 3 days postop. [facility] /[id number] Patient seen and examined. Agree with note as scribed on my behalf by Chel Barrios , MS3. -book binder 09/10/17 2046 [facility]
[2017-09-09] MEDS: Famotidine 20 MG Tab PO SCH ×2 (10:00→20:39)
[2017-09-09] MEDS: Ibuprofen 800 MG Tab PO PRN ×2 (12:17→20:39)
[2017-09-10] MEDS: Ibuprofen 800 MG Tab PO PRN (04:14)
[2017-09-10] MEDS: Acetaminophen/oxyCODONE 325-5 MG Tab PO PRN ×2 (04:15→08:22)
[2017-09-10] MEDS: Famotidine 20 MG Tab PO SCH (08:21)
[2017-09-10] MEDS: Ferrous Sulfate 325 MG Tab PO SCH (08:22)
[2017-09-10] MEDS: Simethicone 80 MG Tab.Chew PO SCH (08:22)
[2017-09-10] MEDS: Docusate Sodium 100 MG Cap PO PRN (08:22)
[2017-09-10] MEDS: Prenatal Multivitamin with Calcium/Folic Acid/Iron Tab PO SCH (08:22)
[2017-09-10 09:23] VITALS: BP 116/88
--- NOTE | 2017-09-10 21:06 | DISCH ---
ADMISSION DIAGNOSES: 1. A 37 and 1/7 weeks gestation by 11-week ultrasound. 5, para 2-0-2- 2. 2. Blood type O positive, rubella equivocal, group B strep negative. Intrahepatic cholestasis of , recurrent. 3. Late and insufficient care. 4. History of spontaneous x2. 5. History of section x2. 6. Smoker. 7. History of illegal drug use. Urine drug screens have been negative this . 8. History of pyelonephritis at 10 weeks gestation without treatment. 9. Hepatitis C carrier. DISCHARGE DIAGNOSES: 1. A 37 and 1/7 weeks gestation by 11-week ultrasound. 5, para 3-0-2- 3. 2. Blood type O positive, rubella equivocal, group B strep negative. Intrahepatic cholestasis of , recurrent. 3. Late and insufficient care. 4. History of spontaneous x2. 5. History of section x3. 6. Smoker. 7. History of illegal drug use. Urine drug screens have been negative this . 8. History of pyelonephritis at 10 weeks gestation without treatment. 9. Hepatitis C carrier. BRIEF HISTORY: This is a 27-year-old female presented to the hospital for a scheduled repeat section at 37 weeks 1 day for delivery due to intrahepatic cholestasis of . See admission history and physical and operative note for details. HOSPITAL COURSE: The patient had a repeat low transverse section without complications. Delivered a viable female infant, weighing 3060 g, or 6 pounds 12 ounces with scores of 6 and 8. Since delivery, mother has been doing well, ambulating within her room, tolerating a normal diet, voiding and having flatulence without complications. Mother states she is ready to go home and has been bottle feeding the baby well. Mother denies headaches, nausea, right upper quadrant pain, swelling, difficulty ambulating, or changes in vision. DISCHARGE CONDITION: Good. PHYSICAL EXAMINATION: Vital Signs: Temperature 98.5, pulse 71, blood pressure 111/68, with respirations of 16, O2 saturation 98% on room air. Heart: Regular rate and rhythm. S1 and S2 can be heard. Lungs: Clear to auscultation bilaterally. No rhonchi or wheezes. Abdomen: Soft and nontender. Fundus is firm below the umbilicus. Extremities: No edema, erythema, or tenderness. LABORATORY DATA: Admission hemoglobin of 12.7. Hemoglobin of 8.7 on day #1 postop. Platelets 282 on admission. Platelets of 218 day #1 postop. DISPOSITION: Home with family. MEDICATIONS: 1. Ibuprofen 600 mg every 6 hours as needed for pain. 2. Tylenol 650 mg every 6 hours as needed for pain. 3. Iron 325 mg twice daily. 4. Colace 100 mg twice daily as needed for constipation. 5. Ursodiol as prescribed. The patient may finish her prescription for intrahepatic cholestasis, if it helps her itching. 6. Percocet 5/325 one to two every 4 to 6 hours as needed for pain. 7. Vistaril 25 mg every 8 hours for itching. 8. Pepcid 20 mg every 12 hours for itching and reflux symptoms. INSTRUCTIONS: The patient has an appointment with Dr. Marquez in the clinic on Friday. This is for baby weight check. She is to make the appointment herself with Dr. Marquez for staple removal next week, and at 6 weeks to have a 6 weeks exam. During those 6 weeks, she is to be on pelvic rest and to not lift anything over 20 pounds. Routine delivery instructions were provided. Questions were answered. [facility] /[id number] Patient seen and examined. Agree with note as scribed on my behalf by Chel Barrios , MS3. -[facility] 09/10/17 2148 [facility]
== END 2017-09-10 09:15 | disposition home or self-care (01) | DRG 765 ==
LOC: DL.OB 05:53 → OBSVTOIN 08:29
PROVIDERS: ADMIT Family Medicine; ATTEND Family Medicine
PROC: 10D00Z1 Extraction of Products of Conception, Low, Open Approach (ICD-10-PCS; principal; 2017-09-08)
DX: O26.62 Liver and biliary tract disorders in childbirth (principal); K83.1 Obstruction of bile duct; O98.42 Viral hepatitis complicating childbirth; Z3A.37 37 weeks gestation of pregnancy; B18.2 Chronic viral hepatitis C; Z37.0 Single live birth; O34.211 Maternal care for low transverse scar from previous cesarean delivery; O99.334 Smoking (tobacco) complicating childbirth; F17.200 Nicotine dependence, unspecified, uncomplicated
CPT/HCPCS: 01961; 36415; 80305; 85025; 85027; 86850; 86900; 86901; 90707; 94010; A9270-GY; J0595; J0690; J1100; J1200; J1885; J2274; J2405; J2590; J3010; J7120; Q0163; S0028

== ENCOUNTER 2020-02-21 10:34 | Emergency (ER) | payer MEDICAID ==
[2020-02-21 10:54] VITALS: BP 108/87; PULSE 130
--- NOTE | 2020-02-21 11:09 | EDM.PDOC ---
ED HPI GENERAL MEDICAL PROBLEM - General Chief Complaint: Skin Complaint Stated Complaint: SEVERE BODY ACHES 02/18 PT HAS ARM INFECTION Time Seen by Provider: 02/21/20 10:55 Source of Information: Reports: Patient History Limitations: Reports: No Limitations - History of Present Illness INITIAL COMMENTS - FREE TEXT/NARRATIVE: This 29 yo female patient reports to the ED with right arm swelling, pain and redness. The patient reports she attempted to inject Meth on Friday (02/19/20) in her right AC. The patient reports increased pain starting Friday evening. The patient report her pain has been getting worse over the past 2 days. The patient has not attempted to get into the clinic for a visit. The patient also reports she has had some vaginal discharge over the past 24 hours. The patient reports she has had a tubal ligation (denies chances of ). The patient reports she has been taking Tylenol and ibuprofen with little to no symptom relief. Onset Date: 02/19/20 Duration: Constant, Getting Worse Location: Reports: Upper Extremity, Right Quality: Reports: Ache, Sharp, Throbbing Severity: Moderate Improves with: Reports: None Worsens with: Reports: None Context: Reports: Other Associated Symptoms: Reports: Other (body aches) Treatments CARGO TRIMMER: Reports: Acetaminophen, NSAIDS Right Elbow Pain Score (Numeric/FACES): 6 - Related Data Allergies Allergy/AdvReac Type Severity Reaction Status Date / Time No Known Allergies Allergy Verified 02/21/20 10:52 Home Meds: Home Meds Pnv No.95/Ferrous Fum/Folic AC [ Tablet] 1 tab PO DAILY 09/08/17 [History] hydrOXYzine pamoate [Vistaril] 25 mg PO Q8H PRN 09/08/17 [History] Acetaminophen/oxyCODONE [Percocet 325-5 MG] 2 tab PO Q4H PRN #30 tablet 09/10/17 [Rx] Docusate Sodium [Colace] 100 mg PO Q12H PRN #60 cap 09/10/17 [Rx] Famotidine [Pepcid] 20 mg PO BID #30 tablet 09/10/17 [Rx] Ferrous Sulfate 325 mg PO BIDMEALS #60 tablet 09/10/17 [Rx] Ibuprofen [Motrin] 600 mg PO Q6H PRN #40 tablet 09/10/17 [Rx] Past Medical History HEENT History: Reports: Other (See Below) Other HEENT History: Glasses Cardiovascular History: Reports: None Respiratory History: Reports: None Other Gastrointestinal History: Cholestasis Genitourinary History: Reports: None PATIENT CARE TECHNICIAN History: Reports: , Spontaneous Other PATIENT CARE TECHNICIAN History: menarche Musculoskeletal History: Reports: None Neurological History: Reports: None Psychiatric History: Reports: Addiction Endocrine/Metabolic History: Reports: None Hematologic History: Reports: None Immunologic History: Reports: None Oncologic (Cancer) History: Reports: None Dermatologic History: Reports: None - Infectious Disease History Infectious Disease History: Reports: Hepatitis C - Past Surgical History Head Surgeries/Procedures: Reports: None Female Surgical History: Reports: Section Social & Family History - Family History Family Medical History: No Pertinent Family History - Tobacco Use Tobacco Use Status *Q: Current Every Day Tobacco User Years of Tobacco use: 3 Packs/Tins Daily: 1 - Caffeine Use Caffeine Use: Reports: Coffee, Energy Drinks, Soda, Tea - Recreational Drug Use Recreational Drug Use: Yes Drug Use in Last 12 Months: Yes Recreational Drug Type: Reports: Methamphetamine Recreational Drug Use Frequency: Daily ED ROS GENERAL - Review of Systems Review Of Systems: Comprehensive ROS is negative, except as noted in HPI. ED EXAM, SKIN/RASH Exam: See Below Exam Limited By: No Limitations General Appearance: Alert, WD/WN, Moderate Distress Eye Exam: Bilateral Eye: EOMI, Normal Inspection, PERRL Ears: Normal External Exam, Normal Canal, Hearing Grossly Normal, Normal TMs Nose: Normal Inspection, Normal Mucosa, No Blood Throat/Mouth: Normal Inspection, Normal Lips, Normal Teeth, Normal Gums, Normal Oropharynx, Normal Voice, No Airway Compromise Head: Atraumatic, Normocephalic Neck: Normal Inspection Respiratory/Chest: No Respiratory Distress, Lungs Clear, Normal Breath Sounds, No Accessory Muscle Use, Chest Non-Tender Cardiovascular: No Edema, No Gallop, No JVD, No Murmur, No Rub, Tachycardia GI/Abdominal: Normal Bowel Sounds, Soft, Non-Tender, No Organomegaly, No Distention, No Abnormal Bruit, No Mass (Female) Exam: Deferred Rectal (Female) Exam: Deferred Back Exam: Normal Inspection, Full Range of Motion, NT Extremities: Arm Pain (Right arm (erythema, increased pain). No evidence of abccess.) Neurological: Alert, Oriented, CN II-XII Intact, Normal Cognition, Normal Gait, No Motor/Sensory Deficits Psychiatric: Normal Affect, Normal Mood Skin: Erythema Location, Skin: Upper Extremity, Right Characteristics: Confluent, Erythematous Associated features: Warmth, Tenderness, Swelling, Inflammation. No: Induration, Crusting, Weeping Lymphatic: No Adenopathy Course - Vital Signs Last Recorded V/S: Last Vital Signs Temp 36.9 C 02/21/20 10:52 Pulse 130 H 02/21/20 10:52 Resp 18 02/21/20 10:52 BP 108/87 02/21/20 10:52 Pulse Ox 100 02/21/20 10:52 - Orders/Labs/Meds Orders: Active Orders 24 hr Category Date Time Status CULTURE BLOOD [BC] Stat Lab 02/21/20 11:01 Ordered CULTURE BLOOD [BC] Stat Lab 02/21/20 11:01 Ordered Blood Culture x2 Reflex Set [OM.PC] Stat Oth 02/21/20 11:01 Ordered Labs: Laboratory Tests 02/21/20 02/21/20 02/21/20 Range/Units 11:05 11:05 11:15 WBC (5.0-10.0) 10^3/uL RBC (4.2-5.4) 10^6/uL Hgb (12.0-16.0) g/dL Hct (37.0-47.0) % MCV (80-100) fL MCH (27.0-34.0) pg MCHC (33.0-35.0) g/dL Plt Count (150-450) 10^3/uL Neut % (Auto) (42.2-75.2) % Lymph % (Auto) (20.5-50.1) % Barbour % (Auto) (2-8) % Eos % (Auto) (1.0-3.0) % Baso % (Auto) (0.0-1.0) % Add Manual Diff Neutrophils % (Manual) (42-75) % Band Neutrophils % % Lymphocytes % (Manual) (20-50) % Monocytes % (Manual) (2-8) % Toxic Granulation Sodium 128 L (136-145) mmol/L Potassium 3.6 (3.5-5.1) mmol/L Chloride 96 L (98-107) mmol/L Carbon Dioxide 21 (21-32) mmol/L Anion Gap 14.6 H (7-13) mEq/L BUN 16 (7-18) mg/dL Creatinine 0.88 (0.55-1.02) mg/dL Est Cr Clr Drug Dosing 79.99 mL/min Estimated GFR (MDRD) > 60 BUN/Creatinine Ratio 18.2 (No establ ref range) Glucose 103 H (74-99) mg/dL Lactic Acid (0.4-2.0) mmol/L Calcium 8.5 (8.5-10.1) mg/dL Total Bilirubin 0.9 (0.2-1.0) mg/dL AST 79 H (15-37) U/L ALT 91 H (14-59) U/L Alkaline Phosphatase 175 H (46-116) U/L Total Protein 7.0 (6.4-8.2) g/dL Albumin 2.9 L (3.4-5.0) g/dL Globulin 4.1 Albumin/Globulin Ratio 0.71 Urine Color Yellow (YELLOW) Urine Appearance Clear (CLEAR) Urine pH 7.0 (5.0-9.0) Ur Specific Valier 1.025 (1.005-1.030) Urine Protein 100 H (NEGATIVE) Urine Glucose (UA) Negative (NEGATIVE) Urine Ketones 15 H (NEGATIVE) Urine Occult Blood Negative (NEGATIVE) Urine Nitrite Negative (NEGATIVE) Urine Bilirubin Negative (NEGATIVE) Urine Urobilinogen 1.0 (0.2-1.0) mg/dL Ur Leukocyte Esterase Negative (NEGATIVE) Urine RBC 0-5 /HPF Urine WBC 0-5 (0-5/HPF) /HPF Ur Epithelial Cells Few (NOT SEEN) /HPF Urine Bacteria Few (0-FEW/HPF) /HPF Urine Mucus Few H (NOT SEEN) /LPF Urine Opiates Screen Negative (NEGATIVE) Ur Oxycodone Screen Negative (NEGATIVE) Urine Methadone Screen Negative (NEGATIVE) Ur Barbiturates Screen Negative (NEGATIVE) U Tricyclic Antidepress Negative (NEGATIVE) Ur Phencyclidine Scrn Negative (NEGATIVE) Ur Amphetamine Screen Positive H (NEGATIVE) U Methamphetamines Scrn Positive H (NEGATIVE) Urine MDMA Screen Negative (NEGATIVE) U Benzodiazepines Scrn Negative (NEGATIVE) Urine Cocaine Screen Negative (NEGATIVE) U Marijuana (THC) Screen Positive H (NEGATIVE) 02/21/20 02/21/20 Range/Units 11:15 11:15 WBC 8.2 (5.0-10.0) 10^3/uL RBC 4.11 L (4.2-5.4) 10^6/uL Hgb 12.1 D (12.0-16.0) g/dL Hct 35.2 L (37.0-47.0) % MCV 85.6 D (80-100) fL MCH 29.4 (27.0-34.0) pg MCHC 34.4 (33.0-35.0) g/dL Plt Count 97 L D (150-450) 10^3/uL Neut % (Auto) 95.0 H (42.2-75.2) % Lymph % (Auto) 1.6 L (20.5-50.1) % Barbour % (Auto) 3.3 (2-8) % Eos % (Auto) 0.0 L (1.0-3.0) % Baso % (Auto) 0.1 (0.0-1.0) % Add Manual Diff Yes Neutrophils % (Manual) 91 H (42-75) % Band Neutrophils % 4 % Lymphocytes % (Manual) 2 L (20-50) % Monocytes % (Manual) 3 (2-8) % Toxic Granulation 1+ slight Sodium (136-145) mmol/L Potassium (3.5-5.1) mmol/L Chloride (98-107) mmol/L Carbon Dioxide (21-32) mmol/L Anion Gap (7-13) mEq/L BUN (7-18) mg/dL Creatinine (0.55-1.02) mg/dL Est Cr Clr Drug Dosing mL/min Estimated GFR (MDRD) BUN/Creatinine Ratio (No establ ref range) Glucose (74-99) mg/dL Lactic Acid 1.9 (0.4-2.0) mmol/L Calcium (8.5-10.1) mg/dL Total Bilirubin (0.2-1.0) mg/dL AST (15-37) U/L ALT (14-59) U/L Alkaline Phosphatase (46-116) U/L Total Protein (6.4-8.2) g/dL Albumin (3.4-5.0) g/dL Globulin Albumin/Globulin Ratio Urine Color (YELLOW) Urine Appearance (CLEAR) Urine pH (5.0-9.0) Ur Specific Valier (1.005-1.030) Urine Protein (NEGATIVE) Urine Glucose (UA) (NEGATIVE) Urine Ketones (NEGATIVE) Urine Occult Blood (NEGATIVE) Urine Nitrite (NEGATIVE) Urine Bilirubin (NEGATIVE) Urine Urobilinogen (0.2-1.0) mg/dL Ur Leukocyte Esterase (NEGATIVE) Urine RBC /HPF Urine WBC (0-5/HPF) /HPF Ur Epithelial Cells (NOT SEEN) /HPF Urine Bacteria (0-FEW/HPF) /HPF Urine Mucus (NOT SEEN) /LPF Urine Opiates Screen (NEGATIVE) Ur Oxycodone Screen (NEGATIVE) Urine Methadone Screen (NEGATIVE) Ur Barbiturates Screen (NEGATIVE) U Tricyclic Antidepress (NEGATIVE) Ur Phencyclidine Scrn (NEGATIVE) Ur Amphetamine Screen (NEGATIVE) U Methamphetamines Scrn (NEGATIVE) Urine MDMA Screen (NEGATIVE) U Benzodiazepines Scrn (NEGATIVE) Urine Cocaine Screen (NEGATIVE) U Marijuana (THC) Screen (NEGATIVE) Meds: Medications Discontinued Medications Generic Name Dose Route Start Last Admin Trade Name Freq PRN Reason Stop Dose Admin Vancomycin HCl 1 gm/ Sodium 250 mls @ 167 mls/hr 02/21/20 12:00 02/21/20 12:12 Chloride IV 02/21/20 13:29 167 mls/hr ONETIME ONE Administration Departure - Departure Time of Disposition: 13:53 Disposition: Home, Self-Care 01 Condition: Fair Clinical Impression: Cellulitis Qualifiers: Site of cellulitis: extremity Site of cellulitis of extremity: upper extremity Laterality: right Qualified Code(s): L03.113 - Cellulitis of right upper limb - Discharge Information *PRESCRIPTION DRUG MONITORING PROGRAM REVIEWED*: Not Applicable *COPY OF PRESCRIPTION DRUG MONITORING REPORT IN PATIENT CLARENCE: Not Applicable Instructions: Cellulitis, Adult, [id number] Forms: ED Department Discharge Care Plan Goals: The patient was advised of the examination and lab results during the visit. The patient was given an IV dose of Levaquin while in the ED. The patient was discharged with a script for Bactrim DS #20 to take 1 by mouth 2 times per day for 10 days and Keflex (500 mg) #40 to take 1 by mouth 4 times per day for 10 days. The patient should follow-up with her primary care facility in about a week to monitor progress. If the patient has any additional symptoms or concerns, the patient should either return to the emergency department or visit her primary care facility. Sepsis Event Note (ED) - Evaluation Sepsis Screening Result: No Definite Risk - Focused Exam Vital Signs: Vital Signs Temp Pulse Resp BP Pulse Ox 02/21/20 10:52 36.9 C 130 H 18 108/87 100 - My Orders Last 24 Hours: My Active Orders 02/21/20 11:01 CULTURE BLOOD [BC] Stat CULTURE BLOOD [BC] Stat Blood Culture x2 Reflex Set [OM.PC] Stat - Assessment/Plan Last 24 Hours: My Active Orders 02/21/20 11:01 CULTURE BLOOD [BC] Stat CULTURE BLOOD [BC] Stat Blood Culture x2 Reflex Set [OM.PC] Stat
[2020-02-21 11:51] LABS: ANION GAP 14.6 mEq/L (7-13); CHLORIDE,CL 96 mmol/L (98-107); SODIUM,NA 128 mmol/L (136-145)
== END 2020-02-21 13:58 | disposition home or self-care (01) ==
LOC: DL.ED 10:34
DX: L03.113 Cellulitis of right upper limb (principal); F17.210 Nicotine dependence, cigarettes, uncomplicated
CPT/HCPCS: 36415; 80053; 80305; 81001; 83605; 85025; 87040; 87077; 96365; 96366; 99283; J3370; J7050

== ENCOUNTER 2020-02-22 12:45 | Emergency (ER) | payer MEDICAID | END 2020-02-22 12:54 | disposition left against medical advice (07) | LOC: DL.ED 12:45 | DX: Z53.21 Procedure and treatment not carried out due to patient leaving prior to being seen by health care provider (principal) ==